=== PATIENT | female | born 2000 | race African-American/Black ===

== ENCOUNTER 2023-04-28 16:56 | Emergency (ER) | payer MEDICAID, SELFPAY ==
[2023-04-28 17:06] VITALS: BP 121/84; PULSE 105; RESP 18; TEMP 37.1; O2SAT 98; BMI 38.5
--- NOTE | 2023-04-28 17:15 | ED_ITS ---
HPI - General Adult General Chief complaint: General Medical Stated complaint: Treated for STD? Time Seen by Provider: 04/28/23 17:22 Source: patient Mode of arrival: ambulatory Limitations: no limitations History of Present Illness HPI narrative: Patient is a 22 year old assigned female at , now male, with a history of recent unprotected sex presenting to the emergency department today with vaginal discharge and pelvic pain. Patient states that on 04/24/2023 he had unprotected sex with someone who later tested positive for Gonorrhea and Chlamydia. He states he went to [facility] and tested positive for Trich on 04/26/2023 and was started on Flagyl however, his vaginal discharge continues to get worse and his pelvis is now hurting. Patient denies any dizziness, lightheadedness, abdominal pain, nausea, vomiting, fever, chills, blurry vision, double vision, loss of vision, chest pain, difficulty breathing, shortness of breath, back pain, night sweats, pain with urination, increased urinary frequency, increased urinary urgency, blood in his urine or stool, syncope or a near syncopal episode, recent trauma or falls, bowel incontinence, bladder incontinence, bowel retention, bladder retention, or any other complaints at this time. Onset (ago): day(s) Severity: mild Related Data Previous Rx's Medication Instructions Recorded doxycycline hyclate 100 mg tablet 100 mg PO BID 14 days #28 tabs 04/28/23 fluconazole 150 mg tablet 150 mg PO Q3D 2 doses #2 tabs 04/28/23 metronidazole 500 mg tablet 500 mg PO BID 14 days #28 tabs 04/28/23 Allergies Allergy/AdvReac Type Severity Reaction Status Date / Time amoxicillin [AMOXICILLIN] Allergy Unknown RASH Verified 04/28/23 17:15 Review of Systems Constitutional: Constitutional: Reports no additional constitutional complaints, Denies chills, Denies fever(s) and Denies night sweats Eyes: Eyes: Reports no additional eye complaints, Denies blurry vision, Denies change in vision, Denies diplopia, Denies eye discharge, Denies loss of vision and Denies eye pain ENT: Denies dizziness Cardiovascular: Cardiovascular: Reports no additional cardiovascular complaints, Denies chest pain, Denies lightheadedness, Denies Loss of Consciousness and Denies dyspnea Respiratory: Respiratory: Reports no additional respiratory complaints and Denies dyspnea Gastrointestinal: Gastrointestinal: Reports no additional gastrointestinal complaints, Denies abdominal pain, Denies melena, Denies hematochezia, Denies change in bowel habits and Denies change in stool character Genitourinary: Genitourinary: Denies hematuria, Denies urinary frequency, Denies dysuria, Reports pelvic pain, Denies urinary incontinence, Denies urinary hesitancy, Denies urinary urgency and Reports vaginal discharge Musculoskeletal: Musculoskeletal: Reports no additional musculoskeletal co mplaints, Denies numbness and Denies tingling Neurologic: Denies dizziness, Denies loss of vision, Denies numbness and Denies tingling Psychiatric: Psychiatric: Reports no additional psychiatric complaints Endocrine: Endocrine: Reports no additional endocrine complaints Hematologic/Lymphatic: Hematologic/Lymphatic: Reports no additional hematologic/lymphatic complaints Allergic/Immunologic: Allergic/Immunologic: Reports no additional allergic/immunologic complaints PMFSH Past Medical History Attestation statement: The following information was validated with the patient. Source: old records reviewed and nursing notes reviewed Social History Social History Advance Directives: No Advance Directives Information Provided: Yes Physical Exam ED Vital Signs: Vital Signs - 24 hr 04/28/23 17:06 Temperature 98.7 F Pulse Rate 105 H Respiratory Rate 18 Blood Pressure 121/84 Pulse Oximetry 98 Oxygen Delivery Method Room Air BMI result Body Mass Index 38.5 Const General: cooperative, no acute distress, alert and awake Nutritional Appearance: well nourished Orientation/consciousness: patient oriented x3 Limitations: no limitations HENMT Head: Yes normal to inspection and Yes atraumatic Ears: hearing grossly normal bilaterally and external ears normal General nose exam: Normal external nose present, no nasal discharge noted and no epistaxis Face and sinus: Yes normal facial exam, No abrasion and No laceration Mouth: Normal oral and palatal mucosa present, no drooling and no muffled voice Eyes General: appearance normal, both eyes and all related structures Periorbital: periorbital findings normal Eyelids: Yes eyelids normal Conjunctivae: conjunctivae normal Pupils: Equal, round and reactive pupils present EOM: EOMs intact bilaterally Neck Neck: Yes normal visual inspection, Yes full ROM and Yes no lymphadenopathy Chest Chest palpation & inspection: normal inspection of the chest Resp Effort & Inspection: normal respiratory effort and able to speak in complete sentences GI Inspection: Yes normal to inspection General: Yes deferred Neuro General: patient oriented x3 and moves all extremities Cranial nerves: Yes Equal, round and reactive pupils present Cognition (Neuro): normal cognition Motor exam (neuro): 5/5 motor strength present throughout Sensory Exam: Normal double simultaneous stimulation for sensation Coordination: [id number] test normal Extrem General: Yes normal to inspection, Yes full ROM and Yes capillary refill normal Psych Appearance: grossly normal Mental Status: mental status grossly normal Affect: normal affect Attitude: cooperative Thought process: Normal thought process present Thought content: Normal thought content present Insight: Good insight present (Psych) Course Course Course Narrative: RME: 22 yodavid harrell presents to the ED for exposure to chlamydia gonorrhea from her partner. Patient states having yellow green discharge. Patient is already on metronidazole for suspected trich. Patient had swabs already at [facility] and waiting for the results. Patient states her partner called her and informed her that he is positive for chlamydia and gonorrhea. Urine CT and Medical Decision Making Medical Decision Making MDM Narrative: Patient is a 22 year old assigned female at , now male, with a history of recent unprotected sex presenting to the emergency department today with pelvic pain and vaginal discharge. Patient's physical exam was unremarkable. Patient deferred pelvic exam. Patient's blood work was unremarkable. Patient's HIV, Hep, gonorrhea, chlamydia, and syphilis are all pending at this time. I have low suspicion for hep, HIV, and syphilis and therefore am not doing any prophylactic treatment for those. Patient's urine showed evidence of infection. I explained my physical exam findings as well as all test results to the patient. I answered all questions asked by the patient. Patient received IM ceftriaxone while in the department. Will treat for PID + vaginal yeast. I stressed the importance of the patient taking his medication as prescribed. I stressed the importance of the patient following up with his primary care provider. I stressed the importance of the patient returning to the emergency department immediately if his symptoms were to worsen or if he were to develop any dizziness, shortness of breath, difficulty breathing, chest pain, blurry vision, loss of vision, nausea, vomiting, abdominal pain, fever, chills, back pain, or any other complaints. Patient verbalized agreement and understanding with this treatment plan and discharge. Differential Diagnosis Differential Diagnoses: The differential diagnosis associated with the presentation includes PID Vaginal yeast Gonorrhea Chlamydia Trich Admission/Observation Consideration of admission/observation: Escalation of care including admission/observation considered Patient would have been admitted to the hospital had his work up had any findings where hospital admission was appropriate and his clinical presentation warranted hospital admission. Lab Data [facility] Lab Attestation statement: I reviewed the patient's lab results. My interpretation of these results are in the [facility] Rationale portion of this note. Labs: Lab Results 04/28/23 Range/Units 17:26 Urine Color Dark Yellow Urine Appearance Turbid Urine pH 8.5 (5.0-9.0) Ur Specific [place] 1.025 (1.005-1.025) Urine Protein Trace (Neg-Trace) mg/dL Urine Glucose (UA) Negative (Negative) mg/dL Urine Ketones Trace (Negative) mg/dL Urine Blood Negative (Negative) Urine Nitrite Negative (Negative) Ur Leukocyte Esterase Large (3+) H (Negative) Urine RBC 0-2 (0-2) /HPF Urine WBC >50 H (0-5) /HPF Ur Squamous Epith Cells 0-2 (0-2) /HPF Urine Bacteria None Seen (None Seen) Hyaline Casts 0-2 (0-2) /LPF Urine Test NEGATIVE (NEGATIVE) Prescription Management I considered prescription management with: Antibiotic (patient prescribed antibiotic) and Other (patient prescribed anti-fungal medication) Discharge Plan Discharge Clinical Impression: Exposure to STD Patient Disposition: Home, Self-Care Instructions: Sexually Transmitted Diseases (ED), Safe Sex Practices (ED) Additional Instructions: Your STD testing is pending at this time. We are treating you for pelvic inflammatory disease (PID) and yeast. This treatment will cover for gonorrhea, chlamydia, and trich. We will call you if your results are positive. Follow up with your primary care provider. Return to the emergency department immediately if your symptoms worsen or if you develop any dizziness, shortness of breath, difficulty breathing, chest pain, blurry vision, loss of vision, nausea, vomiting, abdominal pain, fever, chills, back pain, or any other complaints. Prescriptions: New fluconazole 150 mg tablet 150 mg PO Q3D Qty: 2 0RF metronidazole 500 mg tablet 500 mg PO BID 14 Days Qty: 28 0RF doxycycline hyclate 100 mg tablet 100 mg PO BID 14 Days Qty: 28 0RF Referrals: Kat Alston [Other] Stand Alone Forms: Work/School Release Print Language: Sami
[2023-04-28 17:34] LABS: Appearance Urine Turbid; Color Urine Dark Yellow; Glucose Urine UA Negative (Negative); Leukocyte Esterase Urine Large (3+) (Negative); Nitrite Urine Negative (Negative); PH 8.5 (5.0-9.0); Specific Gravity - Urine 1.025 (1.005-1.025); UMIC TRIGGER UACC YES; Urine Blood Negative (Negative); Urine Ketones Trace mg/dL (Negative); Urine Protein Trace mg/dL (Neg-Trace)
[2023-04-28 18:02] LABS: UPreg QC Valid YES; Urine Pregnancy NEGATIVE (NEGATIVE)
[2023-04-28 18:05] LABS: Bacteria Urine None Seen (None Seen); Hyaline Casts Urine 0-2 /LPF (0-2); RBC Urine 0-2 /HPF (0-2); Squamous Epithelial Cell Urine 0-2 /HPF (0-2); UACC Culture Trigger YES; WBC Urine >50 /HPF (0-5)
[2023-04-28 18:31] LABS: MANUAL DIFF FLAG NO
[2023-04-28] MEDS: cefTRIAXone sodium 500 MG, Lidocaine HCl 1 % MPF 1 ML IM (18:32)
[2023-04-28 18:35] LABS: Basophils Percent Auto 0.4 % (0-2); Eosinophils Absolute Auto 0.1 X10*3/uL (0.0-0.4); Eosinophils Percent Auto 1.1 % (0-4); Hematocrit 46.9 % (37.0-47.0); Hemoglobin 16.1 g/dl (12.0-16.0); Imm Gran Abs Auto 0.04 X10*3/uL (0.00-0.03); Imm Gran Pct Auto 0.5 % (0.0-0.4); Lymphocytes Absolute Auto 1.8 X10*3/uL (1.2-4.9); Lymphocytes Percent Auto 22.4 % (20-40); Mean Corpuscular HGB Conc 34.3 g/dl (31.0-35.0); Mean Corpuscular Volume 87.3 fL (80.0-98.0); Mean Platelet Volume 8.8 fL (9.4-12.3); Monocytes Absolute Auto 0.9 X10*3/uL (0.1-1.2); Monocytes Percent Auto 11.1 % (2-11); Neutrophils Absolute Auto 5.3 x10*3/uL (2.0-8.3); Neutrophils Percent Auto 64.5 % (45-73); Platelet Count 290 X10*3/uL (160-400); Red Blood Count 5.37 X10*6/uL (4.20-5.50); Red Cell Distribution Width 12.5 % (11.0-16.0); White Blood Count 8.1 X10*3/uL (4.8-10.8)
[2023-04-28 18:55] LABS: Alanine Aminotransferase 27 U/L (0-31); Albumin Level 4.4 g/dL (3.5-5.0); Alkaline Phosphatase 112 U/L (39-117); Anion Gap 15 (12-20); Aspartate Amino Transferase 23 U/L (5-31); Bilirubin Direct 0.1 mg/dL (0.0-0.5); Bilirubin Total 0.4 mg/dL (0.0-1.0); Blood Urea Nitrogen 12 mg/dL (9-16); Calcium 9.8 mg/dL (8.4-10.2); Carbon Dioxide 25 mmol/L (22-29); Chloride 104 mmol/L (96-108); Creatinine Clr Calc Pharmacy 81.4; Estimated Glomerular Filt Rate > 60; Glucose Random 83 mg/dL (60-115); Sodium 139 mmol/L (135-145); Total Protein 8.4 g/dL (6.5-8.0)
[2023-04-29 02:46] LABS: CT PCR NOT DETECTED (Not Detect.); NG PCR DETECTED (Not Detect.)
[2023-04-29 03:38] LABS: HBS Num1 3.18 mIU/mL (0-7.99); HBc Num1 0.21 S/CO (0.00-0.79); HBsAGNum1 1.18 S/CO (0.00-0.99); HIV AB/AG Nonreactive (Nonreactive); Hepatitis B Core Antibody Nonreactive (Nonreactive); ~HepC Num1 0.29 S/CO (0.00-0.79); ~Hepatitis B Surface Antibody NONREACTIVE (Nonreactive); ~Hepatitis C Antibody Nonreactive (Nonreactive)
[2023-04-29 03:40] LABS: Syphilis Screen Nonreactive (Nonreactive)
[2023-04-29 04:26] LABS: HBsAGNum2 Nonreactive; HBsAGNum3 Nonreactive; Hepatitis B Surface Antigen NEGATIVE (Negative)
== END 2023-04-28 18:50 | disposition home or self-care (01) ==
PROVIDERS: Physician Assistant; Physician Assistant Medical; Emergency Provider Emergency Medicine
DX: N89.8 Other specified noninflammatory disorders of vagina (principal); R10.2 Pelvic and perineal pain; Z20.2 Contact with and (suspected) exposure to infections with a predominantly sexual mode of transmission; Z79.899 Other long term (current) drug therapy
CPT/HCPCS: 0353U; 36415; 80048; 80076; 81001; 81025; 85025; 86704; 86706; 86780; 86803; 87086; 87340; 87389; 96372; 99282; 99284; J0696

== ENCOUNTER 2023-09-09 12:43 | Emergency (ER) | payer MEDICAID, OTHER, SELFPAY ==
[2023-09-09 12:55] VITALS: BP 141/91; PULSE 99; RESP 18; TEMP 36.3; O2SAT 98; BMI 39.3
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
[2023-09-09 13:54] LABS: MANUAL DIFF FLAG NO
[2023-09-09 13:55] LABS: Basophils Percent Auto 0.3 % (0-2); Eosinophils Percent Auto 0.3 % (0-4); Hematocrit 47.3 % (37.0-47.0); Hemoglobin 16.4 g/dl (12.0-16.0); Imm Gran Abs Auto 0.01 X10*3/uL (0.00-0.03); Imm Gran Pct Auto 0.2 % (0.0-0.4); Lymphocytes Absolute Auto 1.7 X10*3/uL (1.2-4.9); Lymphocytes Percent Auto 28.7 % (20-40); Mean Corpuscular HGB Conc 34.7 g/dl (31.0-35.0); Mean Corpuscular Volume 86.5 fL (80.0-98.0); Mean Platelet Volume 8.8 fL (9.4-12.3); Monocytes Absolute Auto 0.5 X10*3/uL (0.1-1.2); Monocytes Percent Auto 8.2 % (2-11); Neutrophils Absolute Auto 3.7 x10*3/uL (2.0-8.3); Neutrophils Percent Auto 62.3 % (45-73); Platelet Count 296 X10*3/uL (160-400); Red Blood Count 5.47 X10*6/uL (4.20-5.50); Red Cell Distribution Width 12.7 % (11.0-16.0)
[2023-09-09 14:14] LABS: Alanine Aminotransferase 22 U/L (0-31); Albumin Level 4.8 g/dL (3.5-5.0); Alkaline Phosphatase 109 U/L (39-117); Anion Gap 11 (12-20); Aspartate Amino Transferase 20 U/L (5-31); Bilirubin Direct 0.4 mg/dL (0.0-0.5); Bilirubin Total 1.4 mg/dL (0.0-1.0); Blood Urea Nitrogen 10 mg/dL (9-16); Calcium 10.1 mg/dL (8.4-10.2); Carbon Dioxide 24 mmol/L (22-29); Chloride 106 mmol/L (96-108); Creatinine Clr Calc Pharmacy 87.3; Estimated Glomerular Filt Rate > 60; Glucose Random 81 mg/dL (60-115); Potassium 4.1 mmol/L (3.3-5.1); Sodium 137 mmol/L (135-145); Total Protein 8.4 g/dL (6.5-8.0)
--- NOTE | 2023-09-09 14:45 | PC.NURSE ---
Called [facility] for support advocate, informed by severity of illness coordinator that patient must be medically cleared for advocate to be dispatched, will call back when medically cleared, ED leadership made aware.
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
[2023-09-09 16:00] VITALS: BP 146/96; PULSE 89; RESP 16; TEMP 36.7; O2SAT 97
[2023-09-09 16:05] LABS: UPreg QC Valid YES; Urine Pregnancy NEGATIVE (NEGATIVE)
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
[2023-09-09 16:24] LABS: Alanine Aminotransferase 22 U/L (0-31); Aspartate Amino Transferase 19 U/L (5-31)
--- NOTE | 2023-09-09 17:09 | PC.NURSE ---
SANE nurse at bedside
[2023-09-09] MEDS: Ondansetron ODT 4 MG TAB.RAPDIS TRANSLINGU (19:36)
[2023-09-09] MEDS: cefTRIAXone sodium 500 MG, Lidocaine HCl 1 % MPF 1 ML IM (19:36)
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
[2023-09-09] MEDS: SANE Doxycycline Monohydrate 100 MG CAPSULE PO (19:38)
[2023-09-09] MEDS: SANE Dolutegravir Sodium 50 MG TAB KIT PO (19:39)
--- NOTE | 2023-09-09 19:39 | PC.NURSE ---
Unable to scan medications given, IT called. Pharmacy called for meds not in pyxsis . Patient finished with sane exam
[2023-09-09 20:51] VITALS: BP 112/62; PULSE 104; RESP 18; TEMP 36.9; O2SAT 98
--- NOTE | 2023-09-09 21:13 | PC.NURSE ---
hep b immune globulin not given per mar as full dose not available per pharmacy. educated pt to return tomorrow to receive dose.
[2023-09-09] MEDS: [UNRECOGNIZED DRUG - OTHER] IM (21:43)
--- NOTE | 2023-09-09 21:47 | PC.NURSE ---
unable to scan uvada in may, verified with charge rn Karen before administering.
[2023-09-09 21:49] VITALS: BP 112/62; PULSE 104; RESP 18; TEMP 36.9; O2SAT 98
[2023-09-10 02:12] LABS: CT PCR NOT DETECTED (Not Detect.); NG PCR NOT DETECTED (Not Detect.)
[2023-09-10 08:25] LABS: HBS Num1 1.77 mIU/mL (0-7.99); HBsAGNum1 0.43 S/CO (0.00-0.99); HIV AB/AG Nonreactive (Nonreactive); HIV Num 1 0.06 S/CO (0.00-0.99); Hepatitis B Surface Antigen Negative (Negative); ~HepC Num1 0.34 S/CO (0.00-0.79); ~Hepatitis B Surface Antibody NONREACTIVE (Nonreactive); ~Hepatitis C Antibody Nonreactive (Nonreactive)
[2023-09-10 08:33] LABS: Syphilis Screen Nonreactive (Nonreactive)
[2023-09-10 10:37] LABS: Bacterial Vaginosis PCR NEGATIVE (Negative); Candida Group PCR NOT DETECTED (Not Detect); Candida glab krusei PCR NOT DETECTED (Not Detect); Trichomonas vaginalis PCR NOT DETECTED (Not Detect)
== END 2023-09-09 21:50 | disposition home or self-care (01) ==
PROVIDERS: Physician Assistant; Emergency Provider Emergency Medicine
DX: T76.21XA Adult sexual abuse, suspected, initial encounter (principal); Z20.2 Contact with and (suspected) exposure to infections with a predominantly sexual mode of transmission; Z20.828 Contact with and (suspected) exposure to other viral communicable diseases; Z79.899 Other long term (current) drug therapy
CPT/HCPCS: 0352U; 0353U; 36415; 80048; 80076; 81025; 84450; 84460; 85025; 86706; 86780; 86803; 87340; 87389; 90651; 90746; 96372; 99285; J0696

== ENCOUNTER 2023-10-05 18:40 | Emergency (ER) | payer MEDICAID, SELFPAY ==
[2023-10-05 19:14] VITALS: BP 111/76; PULSE 85; RESP 14; TEMP 37.3; O2SAT 98; BMI 38.6
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
--- OUTSIDE RECORDS SUMMARY | 2023-10-05 19:29 | XMS_ITS ---
Author Organization [facility] Address [address] [place] [id number] Care Team Providers Care Proof Press Operator Name Role Phone Yolande, Jesus Unavailable [phone] Allergies Allergen (clinical drug ingredient) Drug/Non Drug Allergy documented on EMR Reaction Allergy Type Onset Date Status amoxicillin Amoxicillin hives Drug Allergy Act veronica REASON FOR VISIT rx refill Medications Medication SIG (Take, Route, Fr equency, Duration) Notes Start Date End Date Status Finasteride 1 MG 1 tablet Orally Once a day for 90 days 04/09/2023 Active Social History Sex Assigned At : Social History Observation Description Sex Assigned At Female Encounters Encounter Location Date Provider Diagnosis [address] [id number] 06/13/2023 Jesus Lanier Gender identity disorder, unspecified F64.9 Assessments Encounter Date Diagnosis (ICD Code) Assessment Notes Treat ment Notes Treatment Clinical Notes 06/13/2023 Gender identity disorder, unspecified (ICD-10 - F64.9) Plan Of Treatment Medication Medication Name Sig Start Date Stop Date Notes Finasteride 1 MG 1 tablet Orally Once a day for 90 days Progress Notes * MASON DarwinlexieDOB:2000 ([age] yo F)Acc No.[id number]:06/13/2023 Patient:?Gab MASON :2000???Age:22 Y???Sex:Female Address:[address] [place] [address] [place], [address] * Refills? Refill Finasteride Tablet, 1 MG, Orally, 90 Tablet, 1 tablet, Once a day, 90 days, Refills=1 Subjective: * Chief Complaints: * ???Rx refill * Medical History:? * Surgical History:? * Hospitalization/Major Diagno stic Procedure:? * Medications:? * Allergies:?Amoxicillin: hive sno[Allergies Verified] Objective: * Vitals:? * Physical Examination:? Assessment: * Assessment: 1.?Gender identity disorder, unspecified - F64.9? Plan: * Treatment: * Procedure Codes:? * true * Date:? Generated for Sharon bertrand/Drake/eTransmitting on:?10/05/2023 07:29 PM EDT
--- OUTSIDE RECORDS SUMMARY | 2023-10-05 19:29 | XMS_ITS | Patient Health Record ---
Author Organization [facility] Address [address] [place] [phone] Care Team Providers Care Glass Driller Name Role Phone SHERIFNicole LEONARDO Unavailable [phone] SPENCER EDWARDS Unavailable [phone] EILEEN BEAVER Unavailable [phone] Ita Tabares Unavailable [phone] Jesus Lanier Unavailable [phone] Allergies Allergen (clinical drug ingredient) Drug/Non Drug Allergy documented on EMR Reaction Allergy Type Onset Date Status amoxicillin Amoxicillin hives Drug Allergy Act veronica Results Component Value Reference Range Notes APTIMA COMBO 2 CT/NG, Urine Reviewed date:07/24/2023 09:02:10 AM Interpretation:Negative Performing Lab:[facility], [facility]@ [place], [address] Asim Riddle DO Notes/Report: GONORRHEA, AMPLIFIED NEGATIVE NEGATIVE CHLAMYDIA, AMPLIFIED NEGATIVE NEGATIVE DNA Test Results SEX: F : 2000 AGE: 22 [id number] CLINIC ID: [id number] SS: PHYSICIAN: SPENCER EDWARDS PEDIGREE RESEARCHER COLLECTED BY: [id number] Specimen Source: Urine Specimen Type: Urine, [place] PCR Medium Neisseria gonorrhoeae: NEGATIVE Normal Value: Negative Chlamydia trachomatis: NEGATIVE Normal Value: Negative Hgb+Hct-[id number] Reviewed date:06/17/2023 09:50:18 AM Interpretation:16.1/48.8 Performing Lab:[facility], [address], [place], Phone - [phone], Director - Raina Notes/Report: Hemoglobin 16.1 11.1-15.9 g/dL Hematocrit 48.8 34.0-46.6 % Testosterone, Total, LC/MS-0 35594 Reviewed date:06/25/2023 10:25:51 AM Interpretation:559, normal Performing Lab:[facility], [address] [place] [address], Phone - [phone], Director - Yulisa Notes/Report: Testosterone, Total, LC/MS 559 This test was developed and its performance characteristics determined by [facility]. It has not been cleared or approved by the Food and Drug Administration. Reference Range: Adult Females Premenopausal 10 - 55 Postmenopausal 7 - [address]/NG, Vagina l Reviewed date:05/20/2023 03:50:44 PM Interpretation:Negative Performing Lab:[facility], [facility]@ [place], [address] Asim Riddle DO Notes/Report: GONORRHEA, AMPLIFIED NEGATIVE NEGATIVE CHLAMYDIA, AMPLIFIED NEGATIVE NEGATIVE DNA Test Results SEX: F : 2000 AGE: 22 [id number] CLINIC ID: [id number] SS: PHYSICIAN: LEONARDO ULLOA PEDIGREE RESEARCHER COLLECTED BY: [id number] Specimen Source: Vaginal Specimen Type: Swab, [place] PCR Medium Neisseria gonorrhoeae: NEGATIVE Normal Value: Negative Chlamydia trachomatis: NEGATIVE Normal Value: Negative VAGINOSIS VAGINITIS PLUS Reviewed date:05/01/2023 04:33:25 PM Interpretation:GC Performing Lab:Testing performed or reported by [facility], a Service of [facility], [facility] [place], [place] [address] Salas Gamez MD, Order Expediter [facility]# [id number] Notes/Report: BACTERIAL VAGINOSIS NEGATIVE (NEG) No bacterial vaginosis targets by PCR detected in this patient's sample. Note: This assay uses real time extension agent-mediated amplification (TMA) for detection and quantification of ribosomal RNA from bacteria associated with bacterial vaginosis (BV), including Lactobacillus (L. gasseri, L. crispatus, and L. jensenii), Gardnerella vaginalis, and Atopobium vaginae. THANH SPECIES GROUP NEGATIVE (NEG) No thanh species group (C. albicans, C. tropicalis, C. parapsilosis, C. dubliniensis) targets by PCR detected in this patient's sample. THANH GLABRATA NEGATIVE (NEG) No Thanh glabrata targets by PCR detected in this patient's sample. TRICHOMONAS VAGINALIS NEGATIVE (NEG) No Trichomonas vaginalis targets by PCR detected in this patient's sample. Note: This assay uses real time extension agent-mediated amplification (TMA) for detection and quantification of ribosomal RNA from organisms associated with Thanh species group (C. albicans, C. tropicalis, C. parapsilosis, C. dubliniensis), Thanh glabrata, and Trichomonas vaginalis. C.TRACHOMATIS AMP PROBE NEGATIVE (NEG) No Chlamydia Trachomatis RNA detected in this patient's sample (REFERENCE RANGE/NORMAL VALUE: NOT DETECTED) Note: This test uses extension agent- mediated amplification method to detect rRNA from C. Trachomatis N.GONORRHOEAE AMP PROBE POSITIVE (NEG) Neisseria Gonorrhoeae RNA detected in this patient's sample (REFERENCE RANGE/NORMAL VALUE: NOT DETECTED) Result reported to the [facility]. NOTE: This test uses extension agent-mediated amplification method to detect rRNA from N.Gonorrhoeae. A negative result does not preclude infection. In the case of a negative urine result, testing of an endocervical(female) or urethral (male) specimen is recommended if there is high clinical suspicion of infection. Due to very high sensitivity of Nucleic Acid Amplification Test, false positive results may occur. Therefore, specimen handling is extremely important. In patients in whom the disease is unlikely, additional sample for testing should be considered after an initial positive result. The performance characteristics of this test have not been evaluated in children. The Aptima Combo2 assay is not intended for the evaluation of suspected sexual abuse or for other medico-legal indications. The ordering provider should assess if the patient had consensual sex without risk of sexual abuse. Consult the [facility] if needed. Contact phone number . Therapeutic failure or success cannot be determined with the Aptima Combo2 assay since nucleic acid may persist following appropriate antimicrobial therapy. The Centers for Disease Control and Prevention (CDC) recommends confirmatory retesting using culture or a different nucleic acid amplification test when positive results occur, if indicated. Wet Mount Reviewed date:04/26/2023 10:05:15 AM Interpretation:Probable Trich Performing Lab: Notes/Report: Probable Trich Clue Cells neg WBC TNTC Hyphae neg Trichomonas possible pH 7.0 QUE Prep neg whiff Reason For Referral No Information Medications Medication SIG (Take, Route, Frequency, Duration) Notes Start Date End Date Status CVS Alcohol Prep Pads 70 % as directed for 90 days 08/17/2022 Acti ve BD Disp [place] 21G X 1-1/2 as directed for drawing up medication once weekly for 90 days 08/24/2021 Active Testosterone Cypionate 200 MG/ML 0.3 ml/60mg Subcutaneous once weekly for 90 days 04/09/2023 Active Benzoyl Peroxide Wash 5 % 1 application Externally Once a day Active Vistaril Not-Taking BD Luer-Adela Syringe 25G X 5/8 1 ML as directed, for medication administration SQ once weekly for 90 days 08/24/2021 Active Finasteride 1 MG 1 tablet Orally Once a day for 90 days 04/09/2023 Active SEROquel Active Loratadine Not-Takin g lamoTRIgine 150 MG 1 tablet Orally Once a day for 30 day(s) Active Levalbuterol HCl Not -Taking Paragard Intrauterine Copper - as directed Intrauterine Act veronica BD Luer-Adela Syringe 25G X 5/8 3 ML as directed subcutaneous weekly for 90 days 04/09/2023 Active cloNIDine Active Naproxen 375 MG 1 tablet with food o r milk as needed Orally every 12 hrs Not-Taking BD [employer] - as directed for 90 days 08/17/2022 Acti ve BD Disp [place] 19G X 1 use to draw up medication Subcutaneously weekly for 90 days 04/09/2023 Active Social History Sex Assigned At : Social History Observation Description Sex Assigned At Female Problems Problem Type SNOMED Code ICD Code Onset Dates Problem Status W/U Status Risk Notes Problem 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 Problem Gender identity disorder (07068720) Gender identity disorder, unspecified (F64.9) Active confirmed Vital Signs Blood pressure diastolic 70 mm Hg 07/17/2023 Height 59 in 07/17/2023 Blood pressure systolic 120 mm Hg 07/17/2023 Weight 195 lbs 07/17/2023 BMI 39.38 kg/m2 07/17/2023 Encounters Encounter Location Date Provider Diagnosis [facility] [address] [place], [place] [id number] 04/09/2023 LEONARDO GABAI Gender identity disorder, unspecified F64.9 ; Hormone replacement therapy Z79.890 and Counseling, unspecified Z71.9 [facility] [address] [place], [place] [id number] 04/26/2023 Ita Tabares Encounter for screening for infections with a predominantly sexual mode of transmission Z11.3 ; Counseling, unspecified Z71.9 ; Vaginal discharge N89.8 and Trichomonal vulvovaginitis A59.01 [facility] [address] [place], [place] [id number] 05/15/2023 LEONARDO GABAI Encounter for screening for infections with a predominantly sexual mode of transmission Z11.3 and Counseling, unspecified Z71.9 [facility] [address] [place], [place] [id number] 06/13/2023 LEONARDO GABAI Hormone replacement therapy Z79.890 and Other gender identity disorders F64.8 [facility] [address] [place], [place] [id number] 06/25/2023 LEONARDO GABAI Gender identity disorder, unspecified F64.9 and Other fdc (current) drug therapy Z79.[address] [facility] [address] [place] [id number] 07/17/2023 SPENCER EDWARDS Encounter for screening for infections with a predominantly sexual mode of transmission Z11.3 and Counseling, unspecified Z71.[address] [id number] 12/11/2022 LEONARDO GABAI [facility] [address] [place], [place] [id number] 04/10/2023 LEONARDO GABAI [facility] [address] [place] [id number] 04/30/2023 EILEEN BEAVER [facility] [address] [facility] [place], [place] [id number] 06/13/2023 Jesus Lanier Gender identity disorder, unspecified F64.9 Assessments Encounter Date Diagnosis (ICD Code) Assessment Notes Treat ment Notes Treatment Clinical Notes 04/09/2023 Gender identity disorder, unspecified (ICD-10 - F64.9) Clt could follow up for repeat labs and check in every 6-12 months, as they desire. Will RTC for labs 05/2023, due for total testosterone, Hct/Hgb only. Will check in regarding response to finasteride at that time. 6 month of rx sent at this time, will send refills for additional meds 09/2023 as long as no changes needed. 04/09/2023 Hormone replacement therapy (ICD-10 - Z79.890) Clt happy with current regimen, has been on this maintenance dose for some time and does not wish to change. Has been interested in starting Finasteride to reduce androgenic hair loss in the past, but we previously advised clt to wait until they have been on Testosterone for approx 1-2 years before starting finasteride since it could slow other DHT dependent changes like secondary hair growth and clitoral growth. Now that clt has been on hormones for 1 year and 7 months, they would like to start. Reassured clt that some changes in hairline is expected early on, but doesn't necessarily mean more hair loss will occur in the future. Aware of risk and benefits and will trial for a few months to see if improvement. 04/26/2023 Encounter for screening for infections with a predominantly sexual mode of transmission (ICD-10 - Z11.3) 05/15/2023 Encounter for screening for infections with a predominantly sexual mode of transmission (ICD-10 - Z11.3) Reviewed STI screening recommendations and available testing through [email or web address]. Testing ordered as noted per patient risks and preference. Encouraged safe sex practices. Advised to call for evaluation if any symptoms arise. Reviewed method of communicating results to patient. 06/13/2023 Hormone replacement therapy (ICD-10 - Z79.890) 06/13/2023 Gender identity disorder, unspecified (ICD-10 - F64.9) 06/25/2023 Gender identity disorder, unspecified (ICD-10 - F64.9) Clt prefers to follow up every 6 months. Can schedule [facility] follow 11/202306/25/2023 Other fdc (current) drug therapy (ICD-10 - Z79.899) No CI to continue with Finasteride. Rx sent with refills, until due for next routine [facility] appt. Clt aware of risk, benefits and side effects of medication. Will follow up as needed 07/17/2023 Encounter for screening for infections with a predominantly sexual mode of transmission (ICD-10 - Z11.3) Discussed STI's, risk factors, symptoms and infection windows. Encouraged condom use. 07/17/2023 Counseling, unspecified (ICD-10 - Z71.9) 05/15/2023 Counseling, unspecified (ICD-10 - Z71.9) Re test in 3 months 06/13/2023 Other gender identity disorders (ICD-10 - F64.8) 04/26/2023 Counseling, unspecified (ICD-10 - Z71.9) 04/09/2023 Counseling, unspecified (ICD-10 - Z71.9) Denies STI screening at this time. Up to date with PAP, no annual screening needed at this time. 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 04/26/2023 Vaginal discharge (ICD-10 - N89.8) 04/26/2023 Trichomonal vulvovaginitis (ICD-10 - A59.01) 04/26/2023 Other Discussed exam and wet mount results. Wet mount with possible non-motile trichomonads, other signs on wet mount and exam highly suspicious for trichomoniasis. Will treat with metronidazole. Dispensed in clinic, Lot [id number], exp 09/15/23. Reviewed use. Discussed PID precautions and when/how to seek care over the weekend. Reviewed method of communicating results 06/25/2023 Other Needs GC retest 07/2023 Plan Of Treatment No Information Insurance Providers Payer Name Payer Address Payer Phone Subscriber Number Group Number Insured Name Patient Relationship to Insured Coverage Start Date Coverage End Date OR MEDICAID ATT CLAIMS [address] [place] [id number] [phone] [id number] Gab Alvarez Self - patient is the insured Medical (General) History Medical History History ICD Code Asthma Chronic PTSD Bipolar on meds and feels stable as of 6 .2.22 Abnormal pap GC 04/2023 Surgical History Surgery Date(Month/Year) top surgery 02/2023 Hospitalization History Reason Date(Month/Year) see above psych oneal
--- OUTSIDE RECORDS SUMMARY | 2023-10-05 19:29 | XMS_ITS ---
Author Organization [facility] Address [address] [place] [phone] Care Team Providers Care Line Assembler Aircraft Name Role Phone SPENCER EDWARDS Unavailable [phone] Allergies Allergen (clinical drug ingredient) Drug/Non Drug Allergy documented on EMR Reaction Allergy Type Onset Date Status amoxicillin Amoxicillin hives Drug Allergy Act veronica Results Component Value Reference Range Notes APTIMA COMBO 2 CT/NG, Urine Reviewed date:07/24/2023 09:02:10 AM Interpretation:Negative Performing Lab:[facility], [facility] WORKING OUT WORKS [facility], [place], [address] Asim Riddle DO Notes/Report: GONORRHEA, AMPLIFIED NEGATIVE NEGATIVE CHLAMYDIA, AMPLIFIED NEGATIVE NEGATIVE DNA Test Results SEX: F : 2000 AGE: 22 [id number] CLINIC ID: [id number] SS: PHYSICIAN: SPENCER EDWARDS CONFERENCE TRANSLATOR COLLECTED BY: [id number] Specimen Source: Urine Specimen Type: Urine, Scott PCR Medium Neisseria gonorrhoeae: NEGATIVE Normal Value: Negative Chlamydia trachomatis: NEGATIVE Normal Value: Negative REASON FOR VISIT Counseling/Testing Medications Medication SIG (Take, Route, Frequency, Duration) Notes Start Date End Date Status Vistaril Not-Taking Finasteride 1 MG 1 tablet Orally Once a day for 90 days 04/09/2023 Active SEROquel Active Paragard Intrauterine Copper - as directed Intrauterine Act veronica cloNIDine Active Loratadine Not-Takin g Levalbuterol HCl Not -Taking BD Luer-Adela Syringe 25G X 5/8 3 ML as directed subcutaneous weekly for 90 days 04/09/2023 Active Naproxen 375 MG 1 tablet with food o r milk as needed Orally every 12 hrs Not-Taking BD Disp [place] 19G X 1 use to draw up medication Subcutaneously weekly for 90 days 04/09/2023 Active [facility] Alcohol Prep Pads 70 % as directed for 90 days 08/17/2022 Acti ve BD Disp [place] 21G X 1-1/2 as directed for drawing up medication once weekly for 90 days 08/24/2021 Active Testosterone Cypionate 200 MG/ML 0.3 ml/60mg Subcutaneous once weekly for 90 days 04/09/2023 Active BD Luer-Adela Syringe 25G X 5/8 1 ML as directed, for medication administration SQ once weekly for 90 days 08/24/2021 Active BD [employer] Home - as directed for 90 days 08/17/2022 Acti ve Benzoyl Peroxide Wash 5 % 1 application Externally Once a day Active lamoTRIgine 150 MG 1 tablet Orally Once a day for 30 day(s) Active Social History Sex Assigned At : Social History Observation Description Sex Assigned At Female Vital Signs Blood pressure systolic 120 mm Hg 07/17/19 24 Blood pressure diastolic 70 mm Hg 024 Height 59 in 07/17/2023 Weight 195 lbs 07/17/2023 BMI 39.38 kg/m2 07/17/2023 Encounters Encounter Location Date Provider Diagnosis [address] [phone] 07/17/2023 SPENCER EDWARDS Encounter for screen ing for infections with a predominantly sexual mode of transmission Z11.3 and Counseling, unspecified Z71.9 Assessments Encounter Date Diagnosis (ICD Code) Assessment Notes Treat ment Notes Treatment Clinical Notes 07/17/2023 Encounter for screening for infections with a predominantly sexual mode of transmission (ICD-10 - Z11.3) Discussed STI's, risk factors, symptoms and infection windows. Encouraged condom use. 07/17/2023 Counseling, unspecified (ICD-10 - Z71.9) Plan Of Treatment Treatment Notes Assessment Notes Encounter for screening for infections with a predominantly sexual mode of transmission Discussed STI's, risk factors, symptoms and infection windows. Encouraged condom use. Next Appt Details Follow Up: prn, Reason: Progress Notes * Gab MASONDOB:2000 ([age] yo F)Acc No.[id number]:07/17/2023 Progress Notes Patient:Gab MG Provider:?Spencer Edwards NP :2000???Age:22 Y???Sex:Female(T ) Date:07/17/2023 Address:[address] [place], [place] [id number] Subjective: * Chief Complaints: * ???Counseling/Testing * HPI: ???Visit Narrative:? Client would only like urine GC and chlamydia testing today.? No STI symptoms. ?Reason for the visit:?Routine visit - client is going on vacation soon and would like to be sexually active while there..?Current form of control:?IUD - Paragard per client.?Presenting Symptoms:?No sx or concerns per client.?LMP:?07/16/2022 per chart , client does not get periods.?Last date of UPI:?04/18/2023 per client.?Aptima/ declines bw. * Medical History:? 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 control:?Paragard intrauterine device, Depo.?Last menstrual period:?07/16/22.?Last pap smear date:?Apr or May 2021.?Menarche:?Age of menarche?7.?Periods:?Does not get periods.?Sexual activity:?Currently sexually active, with men.?Sexually Transmitted Diseases (STDs):?Gonorrhea.?Unprotected sex in the last 5 days?:?no.?Unprotected sex in the past 10 days?:?no.? * OB History:?Total pregnancie s:?0.?Total living children:?0.? * Surgical History:?top surger y 02/2023 * Hospitalization/Major Diagno stic Procedure:?psych oenal see above * Family History:?Family Histo ry: hypercholesterolemia, diabetes mellitus, hypertension.?Non-Contributory.? None Known. * Social History:?Food Access:?Food Access?The Client's current access to food is?Secure Food Access.?Housing:?Housing?The client's current living situation is:?stable housing.?Reproductive Life Plan:?Reproductive Life Plan?Do you want to have children??Yes, I want to have children,?How long would you like to wait until you/your partner becomes ??not sure,?How sure are you that you will be able to use your control method without any problems??Very sure.?Sexual History:?Sexual History?Sexual History Reviewed:?Partners, Practices, Protection/Past STIs,?Currently sexually active??Yes,?Sexually active with:?Men,?Number of male partners?1,?Your sexual activities include:?oral intercourse, vaginal intercourse,?Date of last unprotected intercourse:?04/18/2023,?Number of partners in past 3 months: 1 Male partner,?Number of partners in past year:?1,?Does your partner(s) currently have any STIs??No.?HIV Risk Assessment:?Additional Questions?Is an HIV Risk Assessment being conducted??No Client declines.?PrEP for HIV:?PrEP for HIV?Is the client interested in beginning/continuing PrEP for HIV??No.?Relationships:?Relationships?Has the client experienced any of the following:?Harmful Relationships,?Emotionally?Yes,?Currently:?No.?Human Trafficking:?Human Trafficking?Experienced:?No.?Tobacco Use:?Tobacco Use?Do you/have you used tobacco??No,?Tobacco Smoking Status?Never smoker .?Drugs/Alcohol:?Drug/Alcohol Use?Do you or have you used drugs??No Per client,?Do you or have you used alcohol??No Per client.?Counseling Provided:?Counseling Provided?Please indicate the length of time, in minutes, that counseling was provided.?7,?Counseling Was Provided By:?lydper.?Aptima/ declines bw. * Medications:?TakingParagard Intrauterine Copper - Intrauterine Device as directed Intrauterine cloNIDine SEROquel lamoTRIgine 150 MG Tablet 1 tablet Orally Once a day Benzoyl Peroxide Wash 5 % Liquid 1 application Externally Once a day BD Luer-Adela Syringe 25G X 5/8 1 ML Miscellaneous as directed, for medication administration SQ once weekly BD Disp [place] 21G X 1-1/2 Miscellaneous as directed for drawing up medication once weekly Testosterone Cypionate 200 MG/ML Solution 0.3 ml/60mg Subcutaneous once weekly CVS Alcohol Prep Pads 70 % Pad as directed BD [employer] - Miscellaneous as directed BD Disp [place] 19G X 1 Miscellaneous use to draw up medication Subcutaneously weekly BD Luer-Adela Syringe 25G X 5/8 3 ML Miscellaneous as directed subcutaneous weekly Finasteride 1 MG Tablet 1 tablet Orally Once a day Taking Paragard Intrauterine Copper - Intrauterine Device as directed Intrauterine Taking cloNIDine Taking SEROquel Taking lamoTRIgine 150 MG Tablet 1 tablet Orally Once a day Taking Benzoyl Peroxide Wash 5 % Liquid 1 application Externally Once a day Taking BD Luer-Adela Syringe 25G X 5/8 1 ML Miscellaneous as directed, for medication administration SQ once weekly Taking BD Disp [place] 21G X 1-1/2 Miscellaneous as directed for drawing up medication once weekly Taking Testosterone Cypionate 200 MG/ML Solution 0.3 ml/60mg Subcutaneous once weekly Taking CVS Alcohol Prep Pads 70 % Pad as directed Taking BD [employer] - Miscellaneous as directed Taking BD Disp [place] 19G X 1 Miscellaneous use to draw up medication Subcutaneously weekly Taking BD Luer-Adela Syringe 25G X 5/8 3 ML Miscellaneous as directed subcutaneous weekly Taking Finasteride 1 MG Tablet 1 tablet Orally Once a day Not-Taking/PRNNaproxen 375 MG Tablet 1 tablet with food or milk as needed Orally every 12 hrs Loratadine Levalbuterol HCl Vistaril Not-Taking/PRN Naproxen 375 MG Tablet 1 tablet with food or milk as needed Orally every 12 hrs Not-Taking/PRN Loratadine Not-Taking/PRN Levalbuterol HCl Not-Taking/PRN Vistaril * Allergies:?Amoxicillin: hive sno[Allergies Verified] Objective: * Vitals:?BP:120/70mm Hg, Ht: 59 in, Wt:195lbs, BMI:39.38Index, Ht-cm: 149.86, Wt- k.45. * Examination: ???General Examination: ?GENERAL APPEARANCE:?normal, well developed, well nourished.?PSYCH:?alert, oriented.? Assessment: * Assessment: 1.?Encounter for screening f or infections with a predominantly sexual mode of transmission - Z11.3 (Primary)?2.?Counseling, unspecified - Z71.9? Spent 15 minutes doing the f ollowing: Chart Prep Obtaining/reviewing history Counseling/Coordination of Care Documenting the visit Educating the patient Ordering medication/test/procedures. Plan: * Treatment: ? Value Reference Range ?GONORRHEA, Amplified NEGATIVE NE GATIVE - * ?CHLAMYDIA, Amplified NEGATIVE NE GATIVE - * SPENCER EDWARDS V 07/24/2023 09: 02:08 AM EDT >This lab was reviewed by SPENCER EDWARDS on 07/24/2023 at 09:02 AM EDT Notes: Discussed STI's, risk factors, symptoms and infection windows. Encouraged condom use. ? * Procedure Codes:? * Follow Up:?prn * Billing Information: * Visit Code:? 32763 Existing - Minimal Complexity (IN USE). * Procedure Codes:? * Sign off status: Completed true * Provider:?Spencer Edwards NP Date:? 024 Generated for Printi ng/Faxing/eTransmitting on:?10/05/2023 07:29 PM EDT History and Physical Notes * HPI (History of Present Illness) Category Sub-Category Detail Notes Visit Narrative Reason for the visit: Routine vi sit - client is going on vacation soon and would like to be sexually active while there. Current form of control: IUD - Par geovanny per client Presenting Symptoms: No sx or concerns p er client LMP: 07/16/2022 per chart , client does not get periods Last date of UPI: 04/18/2023 per client Examination Category Sub-Category Detail Notes General Examination GENERAL APPEARANCE: normal, well developed, well nourished PSYCH: alert, oriented
--- OUTSIDE RECORDS SUMMARY | 2023-10-05 19:29 | XMS_ITS ---
Author Organization [facility] Address [address] [place] [phone] Care Team Providers Care Marketing Administrator Name Role Phone HINA IYER Unavailable [phone] Allergies Allergen (clinical drug ingredient) Drug/Non Drug Allergy documented on EMR Reaction Allergy Type Onset Date Status amoxicillin Amoxicillin hives Drug Allergy Act veronica REASON FOR VISIT Finasteride check in Medications Medication SIG (Take, Route, Frequency, Duration) Notes Start Date End Date Status Benzoyl Peroxide Wash 5 % 1 application Externally Once a day Active lamoTRIgine 150 MG 1 tablet Orally Once a day for 30 day(s) Active BD Disp [place] 21G X 1-1/2 as directed for drawing up medication once weekly for 90 days 08/24/2021 Active BD Luer-Adela Syringe 25G X 5/8 1 ML as directed, for medication administration SQ once weekly for 90 days 08/24/2021 Active Testosterone Cypionate 200 MG/ML 0.3 ml/60mg Subcutaneous once weekly for 90 days 04/09/2023 Active SEROquel Active cloNIDine Active Finasteride 1 MG 1 tablet Orally Once a day for 90 days 04/09/2023 Active Vistaril Not-Taking Paragard Intrauterine Copper - as directed Intrauterine Act veronica Naproxen 375 MG 1 tablet with food o r milk as needed Orally every 12 hrs Not-Taking Levalbuterol HCl Not -Taking Loratadine Not-Takin g BD Luer-Adela Syringe 25G X 5/8 3 ML as directed subcutaneous weekly for 90 days 04/09/2023 Active BD Disp [place] 19G X 1 use to draw up medication Subcutaneously weekly for 90 days 04/09/2023 Active CVS Alcohol Prep Pads 70 % as directed for 90 days 08/17/2022 Acti ve BD [employer] - as directed for 90 days 08/17/2022 Acti ve Social History Sex Assigned At : Social History Observation Description Sex Assigned At Female Vital Signs Blood pressure systolic 128 mm Hg 06/25/19 Blood pressure diastolic 82 mm Hg 024 Height 59 in 06/25/2023 Weight 195 lbs 06/25/2023 BMI 39.38 kg/m2 06/25/2023 Encounters Encounter Location Date Provider Diagnosis [facility] [address] [place] [address] [address] [place], [place] [phone] 06/25/2023 HINA GABAI Gender identity disorder, unspecified F64.9 and Other oil heaterman (current) drug therapy Z79.899 Assessments Encounter Date Diagnosis (ICD Code) Assessment Notes Treatment Notes Treatment Clinical Notes 06/25/2023 Gender identity disorder, unspecified (ICD-10 - F64.9) Clt prefers to follow up every 6 months. Can schedule [facility] follow 11/202306/25/2023 Other jail (current) drug therapy (ICD-10 - Z79.899) No CI to continue with Finasteride. Rx sent with refills, until due for next routine [facility] appt. Clt aware of risk, benefits and side effects of medication. Will follow up as needed 06/25/2023 Other Needs GC retest 07/2023 Plan Of Treatment Medication Medication Name Sig Start Date Stop Date Notes Finasteride 1 MG 1 tablet Orally Once a day for 90 days Treatment Notes Assessment Notes Gender identity disorder, unspecified Cl t prefers to follow up every 6 months. Can schedule [facility] follow 11/2023 Other jail (current) drug therapy N o CI to continue with Finasteride. Rx sent with refills, until due for next routine [facility] appt. Clt aware of risk, benefits and side effects of medication. Will follow up as needed Other Needs GC retest 08/05 23 Next Appt Details Follow Up: 07/2023, re evita t, Reason: Progress Notes * Nishant MASON:2000 ([age] yo F)Acc No.[id number]:06/25/2023 Gender affirming hormones fo llow up visit Patient:?Gab MASON Provider:?Hina Iyer NP :2000???Age:22 Y???Sex:Female(T ) Date:06/25/2023 [facility] [id number] Subjective: * Chief Complaints: * ???Finasteride check in * HPI: ???Visit Narrative:?Clt was seen 03/2023 for routine [facility] appt. Started on Finasteride at that time, here for check in. Recent labs for testosterone and Hgb/Hct performed, all WNL at current dosing. Has noticed less hair loss since starting Finasteride, and would like to continue.Denies side effects or issue with new regimen. Not currently sexually active, treated for GC 04/2023, DIMAS was negative. Denies symptoms of infection or concern of STI exposure. ?Reason for the visit:?[facility] fu.?Current form of control:?iud.?Presenting Symptoms:?none?.?LMP:?amen?.?Last date of UPI:?not active?.? * ROS:?ACHES:?shortness of breath?Denies.?chest pain?Denies.?visual changes?Denies.?calf pain?Denies.?abdominal pain?Denies.?jaundice?Denies.?General/Constitutional:?Denies?Headache.?Ophthalmologic:?Denies?Visual changes.?Endocrine:?Hair Growth?denies.?Denies?Acne.?Denies?Hair loss.?Vaginal/Breast/ Control FU:?Denies?Changes in sex drive.?Denies?Breast lump.?Denies?Breast pain.?Denies?Discharge from the breast.?Denies?Irregular menses.?Denies?Missed period(s).?Denies?Painful intercourse.?Psychiatric:?Denies?Mood concerns.? * Medical History:? * Stable Manager History:?Abnormal pap smear:?Low Grade Squamous Intraepitheliel Lesion (LGSIL).? control:?Paragard intrauterine device, Depo.?Last menstrual period:?07/16.?Last pap smear date:?Apr or May 2021.?Menarche: ?Age of menarche?7 ???Sexual activity:?not currently sexually active, with men.?Sexually Transmitted Diseases (STDs):?Gonorrhea.?Unprotected sex in the last 5 days?:?no.?Unprotected sex in the past 10 days?:?no.? * OB History:?Total pregnancies:?0.? * Surgical History:?top surger y 02/2023 * Hospitalization/Major Diagno stic Procedure:?psych oneal see above * Family History:?Family Histo ry: hypercholesterolemia, diabetes mellitus, hypertension.?Non-Contributory.? * Social History:?Food Access:?Food Access?The Client's current access to food is?Secure Food Access ???Gender Affirming Hormone Care:?Gender Affirming Hormone Care?How do you describe your gender identity? Select all that apply?Nonbinary ?How would you prefer to talk about or refer to your body??(Describe in notes.) top and bottom ?What experience do you have with gender affirming care, if any??Social transition ?What are your goals with seeking gender affirming care??Gender affirming surgery (describe in notes) wants top surgery, wants to be a pretty boy ?While hormonal treatment is not contraception, it can have an impact on fertility. Is this something you would like to plan for??Yes currently on Paragard, interested in possibly freezing eggs and considering a tubal ligation in the future ???Housing:?Housing?The client's current living situation is:?stable housing ???Reproductive Life Plan:?Reproductive Life Plan?Do you want to have children??Not sure ???Sexual History:?Sexual History?Sexual History Reviewed:?Partners, Practices, Protection/Past STIs, Prevention of ?Currently sexually active??No ?When you are sexually active, who are your partners??Men, Women ?Your sexual activities include:?oral intercourse, vaginal intercourse ?Reviewed types of EC??No ?Do you use condoms??No ?Number of partners in past 3 months:?0 ?Number of partners in past year:?1 male ?What is the client's primary method to prevent at the end of their visit??IUD - Liletta ???HIV Risk Assessment:?Additional Questions?Is an HIV Risk Assessment being conducted??No ???PrEP for HIV:?PrEP for HIV?Is the client interested in beginning/continuing PrEP for HIV??No ???Relationships:?Relationships?Has the client experienced any of the following:?Reproductive Coercion, Harmful Relationships, Sexual Coercion ?Emotionally?Yes ?Currently:?No ?Physically:?Yes ?Currently:?No ?Sexually:?Yes ?Currently?No ?Been forced or pressured into sexual activities??Yes ?Currently:?No ???Human Trafficking:?Human Trafficking?Experienced:?No ???Tobacco Use:?Tobacco Use?Do you/have you used tobacco??No ?Tobacco Smoking Status?Former smoker ???Drugs/Alcohol:?Drug/Alcohol Use?Do you or have you used drugs??Yes, in the past ?When you used, by which route did you take drugs??Smoking ?Which drug(s) did you smoke??Marijuana ?Do you or have you used alcohol??No ???Counseling Provided:?Counseling Provided?Please indicate the length of time, in minutes, that counseling was provided.?7 ?Counseling Was Provided By:?fanta * Medications:?TakingParagard Intrauterine Copper - Intrauterine Device as directed Intrauterine cloNIDine SEROquel lamoTRIgine 150 MG Tablet 1 tablet Orally Once a day Benzoyl Peroxide Wash 5 % Liquid 1 application Externally Once a day BD Luer-Adela Syringe 25G X 5/8 1 ML Miscellaneous as directed, for medication administration SQ once weekly BD Disp [place] 21G X 1-1/2 Miscellaneous as directed for drawing up medication once weekly Testosterone Cypionate 200 MG/ML Solution 0.3 ml/60mg Subcutaneous once weekly CVS Alcohol Prep Pads 70 % Pad as directed BD [employer] - Miscellaneous as directed BD Disp [place] 19G X 1 Miscellaneous use to draw [...] administration SQ once weekly Taking BD Disp [place] 21G X 1-1/2 Miscellaneous as directed for drawing up medication once weekly Taking Testosterone Cypionate 200 MG/ML Solution 0.3 ml/60mg Subcutaneous once weekly Taking CVS Alcohol Prep Pads 70 % Pad as directed Taking BD [employer] - Miscellaneous as directed Taking BD Disp [place] 19G X 1 Miscellaneous use to draw up medication Subcutaneously weekly Taking BD Luer-Adela Syringe 25G X 5/8 3 ML Miscellaneous as directed subcutaneous weekly Taking Finasteride 1 MG Tablet 1 tablet Orally Once a day Not-Taking/PRNNaproxen 375 MG Tablet 1 tablet with food or milk as needed Orally every 12 hrs Loratadine Levalbuterol HCl Vistaril Medication List reviewed and reconciled with the patientNot-Taking/PRN Naproxen 375 MG Tablet 1 tablet with food or milk as needed Orally every 12 hrs Not-Taking/PRN Loratadine Not-Taking/PRN Levalbuterol HCl Not-Taking/PRN Vistaril Medication List reviewed and reconciled with the patient * Allergies:?Amoxicillin: hive sno[Allergies Verified] Objective: * Vitals:?BP:128/82mm Hg, Ht: 59 in, Wt:195lbs, BMI:39.38Index, Ht-cm: 149.86, Wt- k.45. * Examination: ???General Examination: ?GENERAL APPEARANCE:?in no acute distress.? Assessment: * Assessment: 1.?Gender identity disorder, unspecified - F64.9 (Primary)?2.?Other oil heaterman (current) drug therapy - Z79.899? Need 2 out of 3 Sections fro m A-C Section A) Problems (only need one from below) One stable chronic illness Section B) Data (at least one of the following categories in this section) Category 1: (Choose 2 of the following): Order unique tests Review test results (each unique test counts as one) Category 2: Assessment requiring an independent historian Section C) Risk Document low risk of morbidity/mortality. Plan: * Treatment: 2.?Other oil heaterman (current) drug therapy? Continue Finasteride Tablet, 1 MG, 1 tablet, Orally, Once a day, 90 days, 90 Tablet, Refills 1.?? Notes: No CI to continue with Finasteride. Rx sent with refills, until due for next routine [facility] appt. Clt aware of risk, benefits and side effects of medication. Will follow up as needed?? 3.?Others? Notes: Needs GC retest 07/2023?? * Procedure Codes:? * Follow Up:?07/2023, GC re evita t * Billing Information: * Visit Code:? 31073 Existing - Low Complexity (IN USE). * Procedure Codes:? * Sign off status: Completed true * Provider:?Hina Iyer NP Date:? 024 Generated for Sharon bertrand/Drake/Shayyitting on:?10/05/2023 07:29 PM EDT History and Physical Notes * HPI (History of Present Illness) Category Sub-Category Detail Notes Visit Narrative Reason for the visit: [facility] fu Current form of control: iud Presenting Symptoms: none LMP: amen Last date of UPI: not active Examination Category Sub-Category Detail Notes General Examination GENERAL APPEARANCE: in no ac autumn distress
--- OUTSIDE RECORDS SUMMARY | 2023-10-05 19:29 | XMS_ITS | Continuity of Care Document ---
Author Organization [facility] ter Address [address] [place] [id number]- Care Team Providers Care Sales Support Specialist Name Role Phone Not on Staff, PCP Primary Care Physician Unavail able Encounter [facility] Date(s): 08/09/21 - 08/10/[address] [address]- Encounter Diagnosis Shortness of breath(Final) - 08/09/21 Tachycardia(Final) - 08/09/21 Discharge Disposition: A-D/C Group Home, [facility], or [facility] Attending Physician: Jimenez Olivares MD Admitting Physician: Jimenez Olivares MD Referring Physician: Not on Staff, Referring MD Allergies, Adverse Reactions, Alerts Substance Reaction Severity Status amoxicillin Active Immunizations Given and Recorded Vaccine Date Status Refusal Reason influenza virus vaccine, inactivated 03/09/21 Give n influenza virus vaccine, inactivated 1 03/19/18 Gi cyd[place] influenza virus vaccine, inactivated 02/16/16 Give n influenza virus vaccine, inactivated 03/23/15 Give n influenza virus vaccine, inactivated 02/09/13 Give n influenza virus vaccine, inactivated 2 02/15/12 Gi cy[place] influenza virus vaccine, inactivated 3 02/01/11 Gi cydney influenza virus vaccine, inactivated 12/20/09 Give n SARS-CoV-2 (COVID-19) mRNA BNT-162b2 vac 08/26/20 Recorded SARS-CoV-2 (COVID-19) mRNA BNT-162b2 vac 08/04/20 Recorded Hepatitis A Pediatric Vaccine 10/11/16 Given Hepatitis A Pediatric Vaccine 03/08/16 Given Meningococcal Conjugate Vaccine 03/23/15 Given Meningococcal Conjugate Vaccine 4 04/05/10 Given influenza virus vaccine, live 12/23/13 Given Human Papillomavirus Vaccine 5 02/01/11 Given Human Papillomavirus Vaccine 6 04/05/10 Given Human Papillomavirus Vaccine 7 02/01/10 Given tetanus/diphtheria/pertussis, acel(Tdap) 8 02/01/10 Given influ virus vac, H1N1, inactive(oldterm) 9 01/26/09 Given Measles/Mumps/Rubella Virus Vaccine 09/17/03 Given Measles/Mumps/Rubella Virus Vaccine 02/14/00 Given Poliovirus Vaccine, Inactivated 01/19/03 Given Poliovirus Vaccine, Inactivated 09/04/00 Given Poliovirus Vaccine, Inactivated 02/20/99 Given Poliovirus Vaccine, Inactivated 98 Given Diphtheria/Tet/Pertussis, Acel (oldterm) 01/19/03 Given Diphtheria/Tet/Pertussis, Acel (oldterm) 09/04/00 Given Diphtheria/Tet/Pertussis, Acel (oldterm) 04/24/99 Given Diphtheria/Tet/Pertussis, Acel (oldterm) 02/20/99 Given Diphtheria/Tet/Pertussis, Acel (oldterm) 98 Given Pneumococcal Conjugate (PCV7) (oldterm) 09/04/00 G iven Pneumococcal Conjugate (PCV7) (oldterm) 02/14/00 G iven Pneumococcal Conjugate (PCV7) (oldterm) 11/08/99 G iven Haemophilus B Conj Vaccine (oldterm) 09/04/00 Give n Haemophilus B Conj Vaccine (oldterm) 04/24/99 Give n Haemophilus B Conj Vaccine (oldterm) 02/20/99 Give n Haemophilus B Conj Vaccine (oldterm) 98 Give n Hepatitis B Vaccine (old term) 02/14/00 Given Hepatitis B Vaccine (old term) 11/08/99 Given Hepatitis B Vaccine (old term) 08/15/99 Given Miscellaneous Vaccine 10 07/17/99 Given 1Result Comment: [id number] 2Admin Note: vis 09/17/2011 3Admin Note: vis given 10.10.2010 4Admin Note: VIS dated 04/14/2007 given 5Admin Note: vis 06.14.2009 given 6Admin Note: VIS dated 04/19/2006 given 7Admin Note: VIS DATED 06/14/09. Given 8Admin Note: VIS dated 02/03/08 9Admin Note: VIS GIVEN 10Admin Note: VARICELLA DISEASE Medications Aerochamber See Instructions, # 1 units, Refills 3, Tot. Refills 3, Maintenance, Use wit albuterol, 03/19/18 14:02:21 EST, Compound Start Date: 03/19/18 Status: Ordered albuterol CFC free 90 mcg/inh inhalation aerosol 180 mcg, 2, puffs, Inhalation, Every 4 hours, PRN, # 8 Gm, Refills 0, Tot. Refills 0, Maintenance, 03/09/21 9:27:00 EST, Inhaler, Route to Pharmacy Electronically, [id number], [facility] #[id number], 152, cm, 03/09/21 8:... Start Date: 03/09/21 Status: Ordered benzoyl peroxide 2.5% topical liquid 1 application, Topically, Daily in AM, If skin becomes too dry, use every other day, # 240 mL, 3 Refills, Maintenance, 03/19/18 14:12:21 EST, Liquid, 1 application Topically Daily in AM,Instr:If skinbecomes too dry, use every other day Start Date: 03/19/18 Status: Ordered Depo-Provera Contraceptive 150 mg/mL intramuscular suspension = 150 mg, Intramuscular, Every 3 months, # 1 mL, 4 Refills, Maintenance, 06/26/18 16:51:47 EDT Start Date: 06/26/18 Status: Ordered LaMICtal 25 mg oral tablet 50 mg, 2, tablet, By Mouth, Daily, # 60 tablet, Refills 0, Tot. Refills 0, Maintenance, 03/09/21 9:26:00 EST, Route to Pharmacy Electronically, [facility] #[id number], Partial fill upon patient request if the prescription is for a schedule II opi... Start Date: 03/09/21 Status: Ordered ProAir HFA 90 mcg/inh inhalation aerosol with adapter 2, puffs, Inhalation, Every 4 hours, as needed for wheezing, # 2 each, Refills 6, Tot. Refills 6, Maintenance, 03/19/18 14:01:54 EST, Route to Pharmacy Electronically, [id number], [facility]/pharmacy #[id number] Start Date: 03/19/18 Status: Ordered QUEtiapine 100 mg oral tablet 100 mg, 1, tablet, By Mouth, Daily at bedtime, # 30 tablet, Refills 0, Tot. Refills 0, Maintenance,03/09/21 9:27:00 EST, Route to Pharmacy Electronically, [facility] #[id number], Partial fill upon patient request if the prescription is for a angy... Start Date: 03/09/21 Status: Ordered tretinoin 0.025% topical cream 1 application, Topically, Daily at bedtime, If skin becomes too dry, use every other day, # 45 Gm, 3 Refills, Maintenance, 03/28/18 15:16:43 EST, Cream, 1 application Topically Daily at bedtime,Instr:If skin becomes too dry, use every other day Start Date: 03/28/18 Status: Ordered Problem List Condition Effective Dates Status Health Status Inform ant Acne(Confirmed) Active ASTHMA - mild, persistent(Confirmed) Active Asthma(Confirmed) Active Bipolar disorder with modera te depression(Confirmed) Active Depression(Confirmed) Active Obese class I(Confirmed) Active Overweight(Confirmed) Active Premenstrual syndrome(Confirmed) Active Results Radiology Reports * Exam Date Time Procedure Performing Provider Status 08/09/21 10:53 PM Chest Portable Janel Webb; Casandra coleman (Verified) Notes: (Chest Portable) Reason For Exam: Shortness of Breath RESULT: Chest Portable Chest Portable Reason: Shortness of Breath; Clinical Question(s): CHF COMPARISON: None. FINDINGS: LINES AND TUBES: None. LUNGS AND PLEURA: Low lung volumes. Clear lungs. Normal pulmonary vascularity. No pleural effusion. No pneumothorax. HEART, MEDIASTINUM AND JEAN-CLAUDE: Heart is normal in size. Normal upper mediastinal and hilar contour. BONES AND SOFT TISSUES: No acute abnormality. IMPRESSION: No acute abnormality. WSN: [id number] Ordering Physician: Matt Ricci Dictated By: Karyn Pineda MD Dictated Date/Time: 08/09/21 11:21 p Reviewed By: Karyn Pineda MD Signed By: Karyn Pineda MD Signed Date/Time: 08/09/21 11:21 pm Transcribed By: ANGELO Transcribed Date/Time: 08/09/21 11:20 pm Vital Signs Most recent to oldest [Reference Range]: 1 2 3 Oxygen Saturation [94-100 %] 100 % (08/10/21 12:54 AM) 100 % (08/09/21 9:48 PM) 100 % (08/09/21 9:47 PM) Pulse Rate [55-90 bpm] 112 bpm *H* (08/10/21 12:54 AM) 115 bpm *H* (08/09/21 9:48 PM) 118 bpm *H* (08/09/21 9:47 PM) Blood Pressure [90-138/55-84 mm Hg] 121/100mm Hg (08/10/21 12:54 AM) 136/101mm Hg (08/09/21 9:48 PM) 136/101mm Hg (08/09/21 9:47 PM) Respiratory Rate [16-30 br/min] 18 br/min (08/10/21 12:54 AM) 20 br/min (08/09/21 9:48 PM) 27 br/min (08/09/21 9:47 PM) Temperature [96.8-100.4 DegF] 97.8 DegF (08/09/21 9:47 PM) Mode of Delivery (Oxygen) Room air (08/10/21 12:54 AM) Room air (08/09/21 9:48 PM) Room air (08/09/21 9:47 PM) Blood pressure sites Arm, left (08/09/21 9:47 PM) Temperature Route Oral (08/09/21 9:47 PM) Social History Social History Type Response Smoking Status Never (less than 100 in lifetime) entered on: 03/02/21 Sex
[2023-10-05 20:30] VITALS: BP 111/76; PULSE 85; RESP 14; TEMP 37.3; O2SAT 98
== END 2023-10-05 20:32 | disposition home or self-care (01) ==
PROVIDERS: Emergency Provider Emergency Medicine
DX: Z03.89 Encounter for observation for other suspected diseases and conditions ruled out (principal); B19.10 Unspecified viral hepatitis B without hepatic coma
CPT/HCPCS: 99282; 99283

== ENCOUNTER → 2023-10-16 15:05 | Outpatient (BNVA) | payer MEDICAID, SELFPAY | PROVIDERS: Visit Provider Internal Medicine ==

== ENCOUNTER 2024-05-09 15:51 | Emergency (ER) | payer MEDICAID, SELFPAY ==
--- NOTE | ~2024-05-09 | US_ITS ---
CLINICAL HISTORY: pain infection TOA? US pelvis transabdominal and transvaginal Comparison: None Findings: Transabdominal and Transvaginal scanning performed. Anteverted uterus is 5.0 cm length. Linear echogenicity secondary to intrauterine device in place. Superior aspect of the intrauterine device is 1.2 cm from the fundus and/or upper imaged endometrium. Inferior aspect of the intrauterine device abuts the partially imaged cervix. (Image 27 of 42, series 1). Endometrium 6 mm thickness. No significant free fluid in the partially imaged pelvis. Right ovary measures 2.8 x 2.4 x 2.3 cm. Left ovary not definitively seen. IMPRESSION: 1. No findings of right-sided ovarian torsion. 2. Left ovary is obscured. 3. Superior aspect of the intrauterine device is borderline low in positioning with superior aspect 1.2 cm from the upper margin of the imaged endometrium. This document has been electronically signed by: Jimenez Medeiros MD on 05/09/2024 23:18:47
--- NOTE | 2024-05-09 16:21 | ED_ITS ---
HPI - General Adult General Chief complaint: General Medical Stated complaint: fever/vomiting no food or water down Time Seen by Provider: 05/09/24 20:21 Source: patient Limitations: no limitations History of Present Illness ED Provider: Domenica Perez PA-C HPI narrative: 23-year-old trans male currently on testosterone therapy, presents with multiple complaints. The patient is currently living in a [facility], there has been an influenza outbreak. The patient has developed fever, nausea, vomiting, body aches over the past 2-3 days. In addition, the patient notes that he has been spotting; the patient still has female genitalia and organs, and has an IUD in place. Patient does state that he has not been consistent with the his testosterone therapy, and has recently re-initiated the hormone treatment. Related Data Previous Rx's ?Medication ?Instructions ?Recorded doxycycline hyclate 100 mg tablet 100 mg PO BID 14 days #28 tabs 04/28/23 fluconazole 150 mg tablet 150 mg PO Q3D 2 doses #2 tabs 04/28/23 metronidazole 500 mg tablet 500 mg PO BID 14 days #28 tabs 04/28/23 cefuroxime axetil 250 mg tablet 250 mg PO BID #10 tabs 09/09/23 doxycycline monohydrate 100 mg 100 mg PO BID #10 caps 09/09/23 capsule acetaminophen 500 mg tablet 1,000 mg (2 x 500 mg) PO Q8H PRN 05/09/24 (Acetaminophen Extra Strength) fever or pain #20 tabs ibuprofen 600 mg tablet 600 mg PO Q6H PRN fever or pain 05/09/24 #20 tabs ondansetron HCl 4 mg tablet 4 mg PO Q8H PRN nausea and 05/09/24 vomiting #10 tabs Allergies Allergy/AdvReac Type Severity Reaction Status Date / Time amoxicillin [AMOXICILLIN] Allergy Unknown RASH Verified 05/09/24 16:23 Review of Systems 2 Review of Systems: Yes all other systems are reviewed and are negative Constitutional: Constitutional: Denies fatigue, Reports fever(s) and Reports malaise Cardiovascular: Cardiovascular: Denies chest pain and Denies dyspnea Respiratory: Respiratory: Denies cough and Denies dyspnea Gastrointestinal: Gastrointestinal: Reports nausea and Reports vomiting Endocrine: Endocrine: Denies fatigue PMFSH Past Medical History Attestation statement: The following information was validated with the patient. Social History Social History Alcohol intake: never Substance Use Type: Marijuana Advance Directives: No Advance Directives Information Provided: No Do you have a plan to hurt others: No Plan Physical Exam ED Vital Signs: Vital Signs - 24 hr 05/09/24 16:22 05/09/24 21:33 Temperature 99.8 F 99.2 F Pulse Rate 104 H 113 H Respiratory Rate 18 18 Blood Pressure 138/90 H 151/88 H Pulse Oximetry 100 100 Oxygen Delivery Method Room Air Room Air BMI result Body Mass Index 35.3 Const Other: Alert Orientation/consciousness: patient oriented x3 Resp Effort & Inspection: normal respiratory effort Cardio Other: Normal peripheral perfusion Skin Other: Warm dry no rash Neuro General: patient oriented x3, gait normal, no focal motor deficits and CN's II- XI intact bilaterally Psych Other: Cooperative Course Course Course Narrative: RME performed by Amada Kyle PA-C. Patient is a 23 year old assigned female, now male, at presenting to the emergency department with fever and vomiting. Detailed physical exam and review of systems are deferred to the manager registration. Labs and swabs ordered. Patient placed back in the waiting room pending room availability and results. Medications Administered Discontinued Medications Generic Name Dose Route Start Last Admin Trade Name Freq PRN Reason Stop Dose Admin Acetaminophen 975 mg 05/09/24 21:05 05/09/24 21:28 Acetaminophen 325 Mg Tablet PO 05/09/24 21:06 975 mg ONCE ONE Administration Sodium Chloride 1,000 mls @ 999 mls/hr 05/09/24 20:30 05/09/24 20:42 Ns IV 05/09/24 21:30 999 mls/hr .Q1H1M SALOMÓN Administration Ketorolac Tromethamine 15 mg 05/09/24 21:05 05/09/24 21:29 Ketorolac Tromethamine 15 Mg/Ml Vial IVPUSH 05/09/24 21:06 15 mg ONCE ONE Administration Ondansetron HCl 4 mg 05/09/24 20:21 05/09/24 20:42 Ondansetron Hcl 4 Mg/2 Ml Vial IVPUSH 05/09/24 20:22 4 mg ONCE ONE Administration Medical Decision Making Medical Decision Making MDM Narrative: 23-year-old trans male currently on testosterone therapy, presents with multiple complaints. The patient is currently living in a [facility], there has been an influenza outbreak. The patient has developed fever, nausea, vomiting, body aches over the past 2-3 days. In addition, the patient notes that he has been spotting; the patient still has female genitalia and organs, and has an IUD in place. Patient does state that he has not been consistent with the his testosterone therapy, and has recently re-initiated the hormone treatment. Problem: Hormonal therapy, infectious exposure History: Per patient I have considered the following differential diagnoses: Viral syndrome, acute intra-abdominal pathology, IUD migrating into uterine wall, side effects of testosterone therapy, Plan: Screening labs including a viral panel were obtained from triage, viral panel negative, the patient appears hemoconcentrated, is clearly dehydrated we will give IV fluid and Zofran. In regard to the spotting, I had discussed ordering an ultrasound to verify IUD placement, I also discussed with the patient that he could be having breakthrough bleeding secondary to reinitiating the testosterone, this is a side effect. They are declining the transvaginal ultrasound, they will follow up with their vehicle fare collector. I have independently reviewed the following tests: Labs: Slight leukocytosis, the patient was hemoconcentrated, no electrolyte abnormality, viral panel negative Lab Data 05/09/24 16:35 05/09/24 16:35 Labs: Lab Results 05/09/24 Range/Units 16:35 WBC 12.7 H (4.8-10.8) X10*3/uL RBC 5.56 H (4.20-5.50) X10*6/uL Hgb 16.7 H (12.0-16.0) g/dl Hct 47.8 H (37.0-47.0) % MCV 86.0 (80.0-98.0) fL MCH 30.0 (27.0-33.0) pg MCHC 34.9 (31.0-35.0) g/dl RDW 13.0 (11.0-16.0) % Plt Count 262 (160-400) X10*3/uL MPV 8.9 L (9.4-12.3) fL Immature Gran % (Auto) 0.4 (0.0-0.4) % Neut % (Auto) 95.8 H (45-73) % Lymph % (Auto) 1.4 L (20-40) % [place] % (Auto) 2.3 (2-11) % Eos % (Auto) 0.0 (0-4) % Baso % (Auto) 0.1 (0-2) % Lymph # (Auto) 0.2 L (1.2-4.9) X10*3/uL [place] # (Auto) 0.3 (0.1-1.2) X10*3/uL Eos # (Auto) 0.0 (0.0-0.4) X10*3/uL Baso # (Auto) 0.0 (0.0-0.2) X10*3/uL Abs Immat Gran (auto) 0.05 H (0.00-0.03) X10*3/uL Absolute Neuts (auto) 12.1 H (2.0-8.3) x10*3/uL Absolute Nucleated RBC 0.000 (0.0-0.012) X10*3/uL Nucleated RBC % (auto) 0.0 (0.0-0.2) /100WBC Smear Tech's Comments VERIFIED Sodium 140 (135-145) mmol/L Potassium 4.3 (3.3-5.1) mmol/L Chloride 107 (96-108) mmol/L Carbon Dioxide 23 (22-29) mmol/L Anion Gap 14 (12-20) BUN 13 (9-16) mg/dL Creatinine 0.92 (0.5-1.4) mg/dL Estim Creat Clear Calc 88.7 Estimated GFR > 60 Random Glucose 99 (60-115) mg/dL Calcium 10.0 (8.4-10.2) mg/dL Magnesium 1.9 (1.6-2.6) mg/dL Total Bilirubin 1.3 H (0.0-1.0) mg/dL AST 24 (5-31) U/L ALT 24 (0-31) U/L Alkaline Phosphatase 96 (39-117) U/L Total Protein 8.7 H (6.5-8.0) g/dL Albumin 4.6 (3.5-5.0) g/dL Influenza Type A (PCR) NEGATIVE (Negative) Influenza Type B (PCR) NEGATIVE (Negative) RSV RNA Qual (PCR) NEGATIVE (Negative) SARS-CoV-2 RNA (RT-PCR) NEGATIVE (Negative) Discharge Plan Discharge Clinical Impression: Acute viral syndrome Patient Disposition: Home, Self-Care Instructions: Viral Syndrome (ED) Additional Instructions: Your screening labs revealed that you were slightly dehydrated, you received IV fluid therapy. The viral panel was negative. You could still have influenza, if your viral load was not appropriate, this could yield a false negative result. See home care instructions. Use the ibuprofen 600 mg taken every 6 hours with food, alternated with Tylenol 1000 mg taken every 8 hours, as needed for headache, body ache and/or fever. Uses Zofran as needed for nausea. Follow up with your primary care provider as needed. Prescriptions: New ondansetron HCl 4 mg tablet 4 mg PO Q8H PRN (Reason: nausea and vomiting) Qty: 10 0RF acetaminophen [Acetaminophen Extra Strength] 500 mg tablet 1,000 mg PO Q8H PRN (Reason: fever or pain) Qty: 20 0RF ibuprofen 600 mg tablet 600 mg PO Q6H PRN (Reason: fever or pain) Qty: 20 0RF No Action fluconazole 150 mg tablet 150 mg PO Q3D Qty: 2 0RF metronidazole 500 mg tablet 500 mg PO BID 14 Days Qty: 28 0RF doxycycline hyclate 100 mg tablet 100 mg PO BID 14 Days Qty: 28 0RF doxycycline monohydrate 100 mg capsule 100 mg PO BID Qty: 10 0RF cefuroxime axetil 250 mg tablet 250 mg PO BID Qty: 10 0RF Print Language: Nicaraguan
[2024-05-09 16:22] VITALS: BP 138/90; PULSE 104; RESP 18; TEMP 37.7; O2SAT 100; BMI 35.3
[2024-05-09 16:56] LABS: Basophils Percent Auto 0.1 % (0-2); Hematocrit 47.8 % (37.0-47.0); Hemoglobin 16.7 g/dl (12.0-16.0); Imm Gran Abs Auto 0.05 X10*3/uL (0.00-0.03); Imm Gran Pct Auto 0.4 % (0.0-0.4); Lymphocytes Absolute Auto 0.2 X10*3/uL (1.2-4.9); Lymphocytes Percent Auto 1.4 % (20-40); MANUAL DIFF FLAG SCAN; Mean Corpuscular HGB Conc 34.9 g/dl (31.0-35.0); Mean Platelet Volume 8.9 fL (9.4-12.3); Monocytes Absolute Auto 0.3 X10*3/uL (0.1-1.2); Monocytes Percent Auto 2.3 % (2-11); Neutrophils Absolute Auto 12.1 x10*3/uL (2.0-8.3); Neutrophils Percent Auto 95.8 % (45-73); Platelet Count 262 X10*3/uL (160-400); Red Blood Count 5.56 X10*6/uL (4.20-5.50); SCAN SMEAR FLAG 1; White Blood Count 12.7 X10*3/uL (4.8-10.8)
[2024-05-09 17:15] LABS: Alanine Aminotransferase 24 U/L (0-31); Albumin Level 4.6 g/dL (3.5-5.0); Alkaline Phosphatase 96 U/L (39-117); Anion Gap 14 (12-20); Aspartate Amino Transferase 24 U/L (5-31); Bilirubin Total 1.3 mg/dL (0.0-1.0); Blood Urea Nitrogen 13 mg/dL (9-16); Carbon Dioxide 23 mmol/L (22-29); Chloride 107 mmol/L (96-108); Creatinine Clr Calc Pharmacy 88.7; Estimated Glomerular Filt Rate > 60; Glucose Random 99 mg/dL (60-115); Magnesium 1.9 mg/dL (1.6-2.6); Potassium 4.3 mmol/L (3.3-5.1); Sodium 140 mmol/L (135-145); Total Protein 8.7 g/dL (6.5-8.0)
[2024-05-09 17:40] LABS: SLIDE REVIEW VERIFIED
[2024-05-09 17:45] LABS: Influenza A PCR NEGATIVE (Negative); Influenza B PCR NEGATIVE (Negative); Resp Syncy Virus RNA Qual PCR NEGATIVE (Negative); SARS COV2 PCR INHOUSE NEGATIVE (Negative)
[2024-05-09] MEDS: ondansetron HCL 4 MG/2 ML VIAL IVPUSH (20:42)
[2024-05-09] MEDS: 0.9 % Sodium Chloride 1,000 ML 999 ML IV (20:42)
[2024-05-09] MEDS: Acetaminophen 325 MG TABLET 975 MG PO (21:28)
[2024-05-09] MEDS: Ketorolac Tromethamine 15 MG/ML VIAL IVPUSH (21:29)
[2024-05-09 21:33] VITALS: BP 151/88; PULSE 113; RESP 18; TEMP 37.3; O2SAT 100
[2024-05-09 23:00] VITALS: BP 151/88; PULSE 113; RESP 18; TEMP 37.3; O2SAT 100
== END 2024-05-09 23:00 | disposition home or self-care (01) ==
PROVIDERS: Physician Assistant Medical; Emergency Provider Emergency Medicine
DX: B34.9 Viral infection, unspecified (principal); R50.9 Fever, unspecified; Z03.818 Encounter for observation for suspected exposure to other biological agents ruled out; F64.0 Transsexualism; Z79.890 Hormone replacement therapy; Z91.148 Patient's other noncompliance with medication regimen for other reason
CPT/HCPCS: 0241U; 76830; 76856; 80053; 83735; 85025; 96374; 96375; 99284; J1885; J2405

== ENCOUNTER → 2024-05-09 21:05 | Outpatient (BNV) | payer MEDICAID, SELFPAY | PROVIDERS: Emergency Provider Emergency Medicine; Visit Provider Radiology Neuroradiology | DX: N93.8 Other specified abnormal uterine and vaginal bleeding (principal) | CPT/HCPCS: 76830; 76856 ==

== ENCOUNTER 2025-02-08 13:57 | Emergency (ER) | payer MEDICAID, SELFPAY ==
--- NOTE | ~2025-02-08 | XR_ITS ---
EXAMINATION: XR KNEE, LEFT CLINICAL INFORMATION: pain COMPARISON: None available. TECHNIQUE: Four views of the left knee. FINDINGS: No fracture, dislocation, or suspicious bone lesion. Normal bone mineralization. Normal alignment. Joint spaces are preserved. No significant arthropathy. No significant joint effusion. Soft tissues appear normal. XR/XR knee LT 4V IMPRESSION: Normal left knee. Electronically signed by: Jesus Thao MD 02/08/2025 02:49 PM KIRSTY
[2025-02-08 14:14] VITALS: BP 113/76; PULSE 92; RESP 16; TEMP 36.8; O2SAT 98; BMI 31.2
--- NOTE | 2025-02-08 14:15 | ED_ITS ---
HPI - Extremity Injury (Lower) General Chief Complaint: Extremity Problem Stated Complaint: Knee Leg Pain Time Seen by Provider: 02/08/25 15:37 Source: patient and family (Significant other at bedside) Mode of arrival: ambulatory Limitations: no limitations History of Present Illness ED Provider: DYLAN Beasley HPI Narrative: 24-year-old transgender male on testosterone therapy, presents with acute on chronic left knee pain. Patient states he has had ongoing knee pain since 2022. Patient reports injury that occurred the end of December where he was walking his 80 lb pit bull dog, and was pulled to the ground and landed on the left knee on the grass with progressive pain since the incident occured. Patient states he does not have a car at this time and takes the bus to get around and walks the rest of the distance to his locations making pain worse. Patient states he saw PCP in 2022 who prescribed topical arthritic cream however this has not been helping his pain. Patient also reports taking Tylenol and ibuprofen without relief, is unable to bear weight on the knee without pain. Related Data Previous Rx's ?Medication ?Instructions ?Recorded doxycycline hyclate 100 mg tablet 100 mg PO BID 14 day s #28 tabs 04/28/23 fluconazole 150 mg tablet 150 mg PO Q3D 2 doses #2 tab s 04/28/23 metronidazole 500 mg tablet 500 mg PO BID 14 days #28 tabs 04/28/23 cefuroxime axetil 250 mg tablet 250 mg PO BID #10 tabs 09/09/23 doxycycline monohydrate 100 mg 100 mg PO BID #10 caps 09/09/23 capsule acetaminophen 500 mg tablet 1,000 mg (2 x 500 mg) PO Q 8H PRN 05/09/24 (Acetaminophen Extra Strength) fever or pain #20 tabs ibuprofen 600 mg tablet 600 mg PO Q6H PRN fever or p ain 05/09/24 #20 tabs ondansetron HCl 4 mg tablet 4 mg PO Q8H PRN nausea and 05/09/24 vomiting #10 tabs ketorolac 10 mg tablet 10 mg PO Q8H PRN pain 3 days #12 02/08/25 tabs Allergies Allergy/AdvReac Type Severity Reaction Status Date / Time amoxicillin (AMOXICILLIN) Allergy Unknown RASH Verified 02/08/25 14:20 Review of Systems Review of Systems: CONST: Negative for fever, body aches and chills. HENT: Negative for neck pain/stiffness, headache, congestion, sore throat, swelling. EYES: Negative for discharge/pain or vision changes. RESP: Negative for cough/hemoptysis and shortness of breath. CV: Negative chest pain, difficulty breathing, palpitations. ABD: Negative pain, nausea, vomiting. : Negative increase frequency, dysuria, blood in urine or stool. MUSC: Negative for muscle aches, edema. POS anterior L knee pain SKIN: Negative rash, lesions/sores. NEURO: Negative headache, dizziness, weakness. [facility] Past Medical History Attestation statement: The following information was validated with the patient. Source: old records reviewed, obtained from family (Significant other at bedside corroborating history) and nursing notes reviewed Social History Social History Alcohol intake: never Substance Use Type: Marijuana Advance Directives: No Advance Directives Information Provided: No Physical Exam Vital Signs: Vital Signs: Last Vital Signs Temp 98.3 F 02/08/25 14:14 Pulse 92 02/08/25 14:14 Resp 16 02/08/25 14:14 BP 113/76 02/08/25 14:14 Pulse Ox 98 02/08/25 14:14 O2 Del Method Room Air 02/08/25 14:14 BMI result Body Mass Index 31.2 GENERAL APPEARANCE: ?AxOx4, generally well-appearing, no acute distress. HEENT: ?NC, AT. MMM. EOMI, clear conjunctiva, oropharynx clear. NECK: ?Supple without lymphadenopathy.? No stiffness or restricted ROM. HEART:? Normal rate and regular rhythm, normal S1/S1, no m/r/g LUNGS:? CTAB, moving air well. No crackles or wheezes are heard. ABDOMEN: ?Soft, nontender, nondistended with good bowel sounds heard. BACK: No CVAT, no obvious deformity. EXTREMITIES: ?Without cyanosis, clubbing or edema. TTP of anterior and lateral patella, ROM intact but does have pain in flexion, no high or low riding pa tella, no anatomical abnormalities palpated, popliteal pulses 2+, DP pulses 2+, the limb is vascularly intact and well perfused, no tenderness to palpation of the calf, no pain when palpating the posterior knee, no ecchymosis or overlying skin changes NEUROLOGICAL: ?Grossly nonfocal. Alert and oriented, moving all 4 extremities. Observed to ambulate with normal gait. Skin: ?Warm and dry without any rash. Course Course Course Narrative: This is an RME: Additional HPI, ROS, PE not included below will be deferred to primary provider. RME assessment and note performed by: Yaima Valencia PA-C This is a [id number] assigned at trans male on testosterone therapy, who presents to the ER with concerns of left knee pain x 2 weeks. Has had problems in knee since 2022. Walks alot. Pt reports they fell on top on the knee several weeks ago. Plan: xrays, further Er eval needed Medical Decision Making Medical Decision Making MDM Narrative: 24-year-old transgender male on testosterone therapy, presents with acute on chronic left knee pain that has gotten progressively worse after his 80 lb pit bull pulled him to the ground landing on the left knee approximately 1 month ago. Patient has been taking Tylenol and ibuprofen without effect, can not bear weight on the knee. VS on initial observation-BP 113/76, pulse rate of 92, respiratory rate of 16, afebrile with oral temp of 98.3?, O2 saturation 98% on room air. On physical exam the left extremity is Without cyanosis, clubbing or edema. TTP of anterior and lateral patella, ROM intact but does have pain in flexion, no high or low riding patella, no anatomical abnormalities palpated, popliteal pulses 2+, DP pulses 2+, the limb is vascularly intact and well perfused, compartments soft, no tenderness to palpation of the calf, no pain when palpating the posterior knee, no ecchymosis or overlying skin changes XR L knee is WNL and negative for fracture, dislocation, large joint effusion, bone lesions Patient with acute on chronic left knee pain that has gotten worse after a fall approximately 4 weeks ago. Imaging negative for fracture, dislocation or large joint effusion. Patient with tenderness of the anterior knee, ROM intact however does have pain when flexing the knee, popliteal and DP pulses 2+, the limb is well-perfused, compartments soft. Pain is most likely musculoskeletal in origin, strain vs patellofemoral syndrome due to the laterality of the pain, may have meniscal tear from past injury. Patient being medicated in the department with 30 mg IM Toradol, 975 p.o. Tylenol. Patient will be discharged with 3 day course of Toradol for pain management. I counseled patient on WHATLEY treatment and will referral to orthopedics for possible further evaluation of injury and referral for physical therapy. Patient has a velcro knee brace he is using that helps with pain, and will be provided with crutches for support. Patient in agreement with the plan. Differential Diagnosis Differential Diagnoses: The differential diagnosis associated with the presentation includes Compartment syndrome Patella fracture Patella dislocation Meniscal tear ACL tear Musculoskeletal pain Patellofemoral syndrome Admission/Observation Consideration of admission/observation: Escalation of care including admission/observation considered Independent Interpretation I performed an independent interpretation of an: Plain X-Ray Interpretation: I personally interpreted the XR L knee which was negative for fracture, dislocation, large joint effusion, I agree with the radiologist's interpretation Radiology Impression Discussion of test interpretation with radiology: I have reviewed the radiologist's reading. Radiologist Impression: XR L knee FINDINGS: No fracture, dislocation, or suspicious bone lesion. Normal bone mineralization. Normal alignment. Joint spaces are preserved. No significant arthropathy. No significant joint effusion. Soft tissues appear normal. XR/XR knee LT 4V IMPRESSION: Normal left knee. Electronically signed by: Jesus Thao MD 02/08/2025 02:49 PM [facility] Dictated By: Jesus Thao MD Signed By: <Electronically signed by Jesus Thao MD in OV> 02/08/25 1449 Independent Historian Clinical information obtained from an independent historian. History obtained from or confirmed by: Spouse (Significant other at bedside corroborating history) External Record Review External record reviewed: Inpatient record, Office record and Outpatient record Chronic Conditions Patient?s care impacted by: Other (No known medical history) Social Determinants Patient?s care significantly limited by Social Determinants of Health including: Inadequate housing and Other Social Determinant of Health Discharge Plan Discharge Clinical Impression: Knee pain Patient Disposition: Home, Self-Care Instructions: Knee Pain (ED) Additional Instructions: You were evaluated in the emergency department for left knee pain. Your x-rays were negative for fracture, dislocation or fluid in the joint space. Your physical exam is consistent with a musculoskeletal pain, possible meniscal tear/ACL tear, or patellofemoral syndrome. You were medicated with 30 mg intramuscular injection of Toradol which is a strong NSAID like ibuprofen, and 975 mg of oral Tylenol. You are being discharged with 3 days of Toradol for pain management. During this time you can take 500 mg of Tylenol every 4 hours, do not take any other NSAIDs such as ibuprofen, Motrin, Aleve or use your topical arthritic cream. Once you have finished taking Toradol, you can then take 500 mg of Tylenol and 400 mg of ibuprofen every 6 hours, ice the affected area in 20 minute increments, elevate the leg above heart height, and provide compression either through Emmanuel bandage or your knee brace. It is important that you stay on top of the pain for management. I am placing a referral to orthopedics office for you, please call their office tomorrow morning to become established as they will not call you. You may need additional imaging such as MRI for further evaluation, or referral to physical therapy for management of your pain. Prescriptions: New ketorolac 10 mg tablet 10 mg PO Q8H PRN (Reason: pain) 3 Days Qty: 12 0RF Rx Instructions: Patient was medicated with 30 mg intramuscular injection of Toradol while in the emergency department for pain management. No Action fluconazole 150 mg tablet 150 mg PO Q3D Qty: 2 0RF metronidazole 500 mg tablet 500 mg PO BID 14 Days Qty: 28 0RF doxycycline hyclate 100 mg tablet 100 mg PO BID 14 Days Qty: 28 0RF doxycycline monohydrate 100 mg capsule 100 mg PO BID Qty: 10 0RF cefuroxime axetil 250 mg tablet 250 mg PO BID Qty: 10 0RF ondansetron HCl 4 mg tablet 4 mg PO Q8H PRN (Reason: nausea and vomiting) Qty: 10 0RF acetaminophen [Acetaminophen Extra Strength] 500 mg tablet 1,000 mg PO Q8H PRN (Reason: fever or pain) Qty: 20 0RF ibuprofen 600 mg tablet 600 mg PO Q6H PRN (Reason: fever or pain) Qty: 20 0RF Referrals: [facility] Orthopedic Surgeons [Provider Group] Print Language: Luxembourgish
[2025-02-08 16:46] VITALS: BP 113/76; PULSE 92; RESP 16; TEMP 36.8; O2SAT 98
--- OUTSIDE RECORDS SUMMARY | 2025-02-08 20:21 | XMS_ITS | Encounter Summary ---
Author Organization [facility] Address [address] [place] [phone] Phone Care Team Providers Care [facility] Worker Name Role Phone Unknown, Unknown Primary Care Provider Garth Guevara Unavailable [email or web address] Nicole Kc MD Primary Care Prov ider Kristine Leon CNP Primary Care Provider [phone] Kassandra Tang DNP Unavailable Ita Burks LICENSING WORKER Unavailable [phone] Garth Crabtree LICENSING WORKER Unavailable [email or web address] Nixon Hogue Primary Care Provider [phone] Charlotte Fofana CNP Primary Care Provid er Encounter Details Date Type Department Care Team (Late st Contact Info) Description 09/28/2022 Telephone [facility] [address] [place] [address] Garth Crabtree LICENSING WORKER [address], [place] Social History Tobacco Use Types Packs/Day Years Used Date Smoking Tobacco: Never Assessed Child or Family Care Answer Date Record ed Do you have problems with on e of the following making it difficult for you to work, study, or receive health care? No 08/31/2022 Education Answer Date Recorded Are you interested in help w ith more adult education (for example, completing high school, GED, job training, learning the [place] language, technical skills, or developing parenting skills)? No 08/31/2022 Are you concerned about learning? Not on file 08/31/2022 No 08/31/2022 Yes 08/31/2022 Food Answer Date Recorded Within the past 6 months we worried whether our food would run out before we got money to buy more. Often True 08/31/2022 Within the past 6 months the food we bought just didn't last and we didn't have enough money to get more. Often True Residential Stability Answer Date Recor ded What is your housing situation today? I have annette sing 08/31/2022 How many times have you move d in the past 12 months? I choose not to answer 08/31/2022 Paying for Meds Answer Date Recorded Do you have trouble paying for medicines? Yes 08/31/2022 Paying Utility Bills Answer Date Record ed Do you have trouble paying y our heating or electricity bill? I choose not to answer 08/31/2022 Transportation Answer Date Recorded Has the lack of transportati on kept you from medical appointments or from getting medications? No 08/31/2022 Unemployment Answer Date Recorded Are you currently unemployed or working on a part-time or temporary basis, and looking for work? Yes 08/31/2022 Digital Access Answer Date Recorded No 08/31/2022 Yes 08/31/2022 Do you have reliable internet access at home? Ye s 08/31/2022 Do you have a device (e.g., phone, tablet, computer) with a working camera? Yes 08/31/2022 Comments Unknown Sex and Gender Information Value Date Recorded Sex Assigned at Not on file Legal Sex Female 8:19 AM EDT Gender Identity Non-binary 10/09/2023 11:41 AM EDT Sexual Orientation Queer 08/31/2022 10 :57 AM EDT documented as of this encounter Plan of Treatment Upcoming Encounters Date Type Department Care Team (Late st Contact Info) Description 02/16/2025 2:00 PM EST Social Work [facility] [address] [place] [phone] Garth Crabtree, QUINCY [address], [place] 03/16/2025 2:00 PM EST Social Work [facility] [address] [place] [phone] Garth Crabtree LICSW [address], [place] [email or web address] documented as of this encounter Visit Diagnoses Not on filedocumented in this encounter Care Teams Child Day Care Center Worker Relationship Specialty Start Date End Date Unknown, Unknown, PCP - General 03/14/22 11/19/22 Nicole Kc MD [address] [place] [address] [email or web address] PCP - General Family Medicine 11/20/22 3 Kristine Leon, [employer] [address] [place] [phone] PCP - General 11/29/22 06/26/23 Nixon Hogue [address] [place] [phone] PCP - General 06/27/23 12/03/23 Charlotte Fofana, CONNER [address] [place] [phone] [email or web address] PCP - General Nurse Practitioner 12/04/23 Garth Crabtree LICSW [address] [place] [address] [email or web address] Dope Weigh Operator 03/20/22 02/03/23 Kassandra Tang DNP [address] [place] [address] [address] [address] [place] [address] 11/29/22 01/07/24 Ita Burks LICSW [address] [place] [phone] [email or web address] Dope Weigh Operator 02/04/23 Garth Crabtree LICSW [address] [place] [address] [email or web address] Dope Weigh Operator 02/22/23 documented as of this encounter Additional Source Comments The information contained in this document represents components of the legal health record. It is not the complete legal health record.[facility]
--- OUTSIDE RECORDS SUMMARY | 2025-02-08 20:21 | XMS_ITS | Clinical Summary ---
Author Organization [facility] Address [address] [place] [address] Phone Care Team Providers Care Postage Machine Operator Name Role Phone Ita Burks DOCK GUARD Unavailable [phone] BroGarth romero DOCK GUARD Unavailable [email or web address] Charlotte Fofana [facility] Primary Care Provid er Allergies Active Allergy Reactions Criticality Noted Date Comments Amoxicillin Rash Low 09/17/2022 Nickel Rash Low 06/27/2023 Pork/Porcine Containing Products Other (See Comments) 09/17/2022 Islam reasons Medications lamoTRIgine (LAMICTAL) 200 MG IMMEDIATE release tablet Take 200 mg by mouth every morning. 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 4 Active albuterol 90 mcg/actuation inhalerIndicatio ns:Moderate persistent asthma without complication Inhale 2 puffs into the lungs continuous prn for wheezing or shortness of breath/dyspnea. 8 g 2 5 Active testosterone cypionate (DEPO-TESTOTERON E) 200 mg/mL injectionIndicat ions:Gender dysphoria Inject 0.3 mL (60 mg total) under the skin every 7 days. 4 mL 2 5 Active docusate sodium (COLACE) 100 MG capsuleIndicatio ns:Constipation, unspecified constipation type Take 1 capsule (100 mg total) by mouth 2 (two) times a day. 60 capsule 3 5 Active multivitamin per tabletIndication s:Healthcare maintenance Take 1 tablet by mouth daily. 90 tablet 3 5 Active copper (PARAGARD) 380 square mm intrauterine device 1 Device by Intrauterine route Once every 10 years. Active terbinafine HCL (LAMISIL) 1 % creamIndications :Tinea pedis of both feet Apply topically 2 (two) times a day. 30 g 5 Active Active Problems Problem Noted Date Diagnosed Date Chronic pain of both knees 10/17/2023 Housing instability due to imminent risk of home lessness 06/27/2023 Acne 04/14/2023 Bipolar affective disorder, currently depressed, moderate 04/14/2023 Adjustment disorder 03/20/2023 Gender dysphoria 12/13/2022 Anxiety 09/17/2022 Asthma 09/17/2022 Depression 09/17/2022 Chronic post-traumatic stress disorder (PTSD) Resolved Problems Problem Noted Date Diagnosed Date Resolved Date Class 1 obesity 04/14/2023 06/27/2023 Premenstrual tension syndrome 04/14/2023 06/27/2023 Encounters Date Type Department Care Team Description 01/19/2025 2:00 PM EST Social Work [facility] [address] [place] [address] Garth Crabtree, [facility] 12/22/2024 Telephone [facility] [address] [place] [address] Rios Saxena 12/01/2024 2:00 PM EDT Social Work [address] [address] Garth Crabtree, DOCK GUARD 11/09/2024 10:00 AM EDT Office Visit [facility] [address] [place] [address] Charlotte Fofana CNP Encounter for annual physical exam (Primary Dx); Tinea pedis of both feet from Last 3 Months Immunizations Immunization Administration Dates Next Due DTaP 01/19/2003, 1,04/24/1999,02/20,1998 Declined 07/17/1999 [id number] FORMULATION 01/26/2009 HPV,quadrivalent 02/01/2011,04/05/2010, 0 Hepatitis A, ped/adol, 2 dose 10/11/2016, 016 Hepatitis B, unspecified formulation 02/14/2000, 11/08/1999,08/15/1999 Hib, unspecified formulation 09/04/2000, 04/24/1999,02/20/1999,12/19 INFLUENZA, SPLIT VIRUS, TRIV ALENT W/ PRESERVATIVE IM 03/19/2018,02/16/2016,03/23/2015,02/09,02/15/2012,02/01/2011,12/20/2009 IPV 01/19/2003, 1,02/20/1999,12/19 Influenza Quadrivalent Prese rvative Free IM 12/19/2022,12/29/2021,03/09/2021 Influenza quadrivalent nasal 12/23/2013 MMR 09/17/2003,02/14/2000 Meningococcal ACWY, unspecif ied formulation 03/23/2015,04/05/2010 Pneumococcal conjugate, PCV 7 09/04/2000, 000,11/08/1999 Tdap 12/19/2022,07/16/2022,02/01/2010 Family History Medical History Relation Comments No Known Problems Father Heart disease Maternal Grandfather Hyperlipidemia Maternal Grandfather Kidney disease Maternal Grandmother Nephrolithiasis Mother Diabetes Paternal Grandmother Relation Status Comments Father Maternal Grandfather Maternal Grandmother Alive Mother Paternal Grandfather Alive Paternal Grandmother Alive Social History Tobacco Use Types Packs/Day Years Used Date Smoking Tobacco: Never Smokeless Tobacco: Never Alcohol Use Standard Drinks/Week Comments Not Currently 0 (1 standard drink = 0.6 oz pur e alcohol) Child or Family Care Answer Date Record ed Do you have problems with on e of the following making it difficult for you to work, study, or receive health care? No 07/31/2023 Education Answer Date Recorded Are you interested in help w ith more adult education (for example, completing high school, GED, job training, learning the Salvadorean language, technical skills, or developing parenting skills)? No 07/31/2023 Are you concerned about learning? Not on file 07/31/2023 No 07/31/2023 Yes 07/31/2023 Food Answer Date Recorded Within the past 6 months we worried whether our food would run out before we got money to buy more. Often True 024 Within the past 6 months the food we bought just didn't last and we didn't have enough money to get more. Sometimes True 07/16 Residential Stability Answer Date Recor ded What is your housing situation today? I have a place to live today, but I am worried about losing it in the next 3 months 07/31/2023 How many times have you move d in the past 12 months? Two or more times 07/31/2023 Paying for Meds Answer Date Recorded Do you have trouble paying for medicines? No 07/31/2023 Paying Utility Bills Answer Date Record ed Do you have trouble paying your heating or elect ricity bill? Yes 07/31/2023 Transportation Answer Date Recorded Has the lack of transportati on kept you from medical appointments or from getting medications? No 07/31/2023 Unemployment Answer Date Recorded Are you currently unemployed or working on a part-time or temporary basis, and looking for work? Yes 07/31/2023 Digital Access Answer Date Recorded Yes 07/31/2023 Yes 07/31/2023 Do you have reliable internet access at home? No 07/31/2023 Do you have a device (e.g., phone, tablet, computer) with a working camera? Yes 07/31/2023 SNAP & WIC Answer Date Recorded Do you receive benefits from SNAP (the Supplemental Nutrition Assistance Program) or the Food Stamp Program? Yes 07/31/2023 SNAP is a free program, interested in learning m ore? Not on file 07/31/2023 Can we help you enroll in SNAP? Not on file 07/31/2023 Benefits received from WIC? Not on file 07/16 WIC is a free program, interested in learning mo re? Not on file 07/31/2023 Can we help you enroll in WIC? Not on file 0 07/31/2023 Intimate Partner Violence Answer Date R ecorded Denied Basic Needs Not on file 06/19/2024 In the past 12 months have y ou been in a relationship with a person who hurts, threatens, or tries to control you? Deferred 06/19/2024 Worried food would run out Not on file 06/19 In the past 12 months have y ou been in a relationship with a person who hurts, threatens, or tries to control you? Deferred 06/19/2024 Comments Unknown Sex and Gender Information Value Date Recorded Sex Assigned at Not on file Legal Sex Female 8:19 AM EDT Gender Identity Non-binary 10/09/2023 11:41 AM EDT Sexual Orientation Queer 08/31/2022 10 :57 AM EDT Last Filed Vital Signs Vital Sign Reading Time Taken Comments Blood Pressure 115/70 11/09/2024 10:05 AM EDT Pulse 90 11/09/2024 10:05 AM EDT Temperature 36.4 C (97.5 F) 06/27/2023 2:03 PM EDT Respiratory Rate - - Oxygen Saturation 99% 11/09/2024 10:05 AM EDT Inhaled Oxygen Concentration - - Weight 75.8 kg (167 lb 3.2 oz) 11/09/2024 10:05 AM EDT Height 154.9 cm (5' 1 ) 11/09/2024 10:05 AM EDT Body Mass Index 31.59 11/09/2024 10:05 AM EDT Plan of Treatment Upcoming Encounters Date Type Department Care Team (Late st Contact Info) Description 02/16/2025 2:00 PM EST Social Work [facility] [address] [place] [address] Garth Crabtree LICSW [address] [place] [address] 03/16/2025 2:00 PM EST Social Work [facility] [address] [place] [address] Garth Crabtree LICSW [address] [place] [address] Health Maintenance Due Date Last Done Comments INFLUENZA VACCINE (#1) 2024 , 12/19/2022, 12/29/2021, Additional history exists COVID-19 VACCINE ( season) 2024 02/01/2023, 08/26/2020, 08/04/2020 PAP SMEAR 07/05/2025 Postponed from 11/02/2019 (Not Clinically Appropriate) DEPRESSION SCREENING 11/09/2025 11/09/2024, 11/10/19 HIV ONE-TIME SCREENING (18-65 YEARS) 11/09/2025 Postponed from 2016 (Not Clinically Appropriate) PNEUMOCOCCAL VACCINES (0-49 years) (1 of 2 - PCV) 11/09/2025 09/04/2000, 02/14/2000, 11/08/1999 Postponed from 2017 (Patient Declines / Guardian Declines) HEPATITIS C SCREENING 11/09/2026 Postpo carmine from 2016 (Not Clinically Appropriate) Adult Td,Tdap Booster 12/19/2032 12/19/2022 , 07/16/2022, 02/01/2010 HIB VACCINES Completed 09/04/2000, 09/1999, 02/20/1999, Additional history exists MENINGOCOCCAL VACCINES (ACWY) Completed 03/23/2015, 04/05/2010 HEPATITIS A VACCINES Completed 10/11/2016, 03/08/20 16 HPV VACCINES Completed 09/09/2023, 01/16, 04/05/2010, Additional history exists SMOKING STATUS SCREENING (Once After 26 Yrs) Completed 11/09/2024 MENINGOCOCCAL VACCINES (B) Aged Out N o longer eligible based on patient's age to complete this topic Medical Devices Not on file Insurance [place] Care Teams Postage Machine Operator Relationship Specialty Start Date End Date ViolaEvangelistMike Charlotte LutherCONNER [address] [place] [address] [email or web address] PCP - General Nurse Practitioner 12/04/23 Ita Burks [facility] [address] [place] [phone] [email or web address] Kids Activities Coach 02/04/23 Garth Crabtree [facility] [address] [place] [address] [email or web address] Kids Activities Coach 02/22/23 Additional Source Comments The information contained in this document represents components of the legal health record. It is not the complete legal health record.[facility]
--- OUTSIDE RECORDS SUMMARY | 2025-02-08 20:21 | XMS_ITS | Encounter Summary ---
Author Organization [facility] Address [address] [place] [address] Phone Care Team Providers Care Gas Reverser Name Role Phone Unknown, Unknown Primary Care Provider Garth Guevara Unavailable [email or web address] Nicole Kc MD Primary Care Prov ider Kristine Leon CNP Primary Care Provider [phone] Kassandra Tang DNP Unavailable Ita uBrks MEDICAL PHYSICS PROFESSOR Unavailable [phone] Garth Crabtree MEDICAL PHYSICS PROFESSOR Unavailable [email or web address] Nixon Hogue Primary Care Provider [phone] Charlotte Fofana CNP Primary Care Provid er Encounter Details Date Type Department Care Team (Late st Contact Info) Description 09/28/2022 Telephone [facility] [address] [place] [address] Garth Crabtree MEDICAL PHYSICS PROFESSOR [address] [place], [place] Social History Tobacco Use Types Packs/Day [...] high school, GED, job training, learning the Romansh language, technical skills, or developing parenting skills)? [...] 02/16/2025 2:00 PM EST Social Work [facility] [address] [place] [address] Garth Crabtree, QUINCY [address] [place], [place] 03/16/2025 2:00 PM EST Social Work [facility] [address] [place] [address] Garth Crabtree LICSW [address] [place], [place] [email or web address] documented as of this encounter Visit Diagnoses Not on filedocumented in this encounter Care Teams Gas Reverser Relationship Specialty Start Date End Date Unknown, Unknown, PCP - General 03/14/22 11/19/22 Nicole Kc MD [address] [place] [address] [email or web address] PCP - General Family Medicine 11/20/22 3 Kristine Leon, PUBLIC ADDRESS TECHNICIAN [address] [place] [address] PCP - General 11/29/22 06/26/23 Nixon Hogue [address] [place] [address] PCP - General 06/27/23 12/03/23 Charlotte Fofana, CONNER [address] [place] [address] [email or web address] PCP - General Nurse Practitioner 12/04/23 Garth Crabtree LICSW [address] [place] [address] [email or web address] Teacher Of The Handicapped 03/20/22 02/03/23 Kassandra Tang DNP [address] [place] [address] [address] [address] [place] [address] 11/29/22 01/07/24 Ita Burks LICSW [address] [place] [address] [email or web address] Teacher Of The Handicapped 02/04/23 Garth Crabtree LICSW [address] [place] [address] [email or web address] Teacher Of The Handicapped 02/22/23 documented as of this encounter Additional Source Comments The information contained in this document represents components of the legal health record. It is not the complete legal health record.[facility]
== END 2025-02-08 16:46 | disposition home or self-care (01) ==
PROVIDERS: Emergency Provider Emergency Medicine
DX: M25.562 Pain in left knee (principal)
CPT/HCPCS: 73564; 96372; 99283; 99284; J1885

== ENCOUNTER → 2025-02-08 14:18 | Outpatient (BNV) | payer MEDICAID, SELFPAY | PROVIDERS: Visit Provider Radiology Diagnostic Radiology | DX: M25.562 Pain in left knee (principal) | CPT/HCPCS: 73564 ==

== ENCOUNTER 2025-03-10 20:24 | Emergency (ER) | payer MEDICAID, SELFPAY ==
--- OUTSIDE RECORDS SUMMARY | 2025-02-16 15:00 | XMS_ITS | Encounter Summary ---
Author Organization [facility] Address [address] [place] [address] Phone Care Team Providers Care Software Client Architect Name Role Phone Ita Burks QUINCY Unavailable [phone] Garth CrabtreeSW Unavailable [email or web address] Charlotte Fofana [facility] Primary Care Provid er Encounter Details Date Type Department Care Team (Late st Contact Info) Description 02/16/2025 3:00 PM EST Social Work [facility] [address] [place], [place] [phone] Garth Crabtree LICSW [address] [place], [place] Social History Tobacco Use Types Packs/Day [...] high school, GED, job training, learning the Pitcairn Islander language, technical skills, or developing parenting skills)? [...] AM EDT documented as of this encounter Progress Notes * Garth Crabtree LICSW - 02/16/2025 3:00 PM EST Eligio was coming out of class and is unable to meet at this time. Planned to meet for regularly scheduled session next week. documented in this encounter Plan of Treatment Not on file documented as of this encounter Visit Diagnoses Not on filedocumented in this encounter Additional Health Concerns Assessment Noted Time PHQ-9 Depression Total Score: 6 11/10/19 11:13 AM EDT PHQ-2 Depression Total Score: 1 11/10/19 11:13 AM EDT documented as of this encounter Care Teams Software Client Architect Relationship Specialty Start Date End Date Charlotte Fofana CNP [address] [place] [address] PCP - General Nurse Practitioner 12/04/23 Ita Burks LICSW [address] [place] [address] Fan Balancer 02/04/23 Garth Crabtree LICSW [address] [place] [address] Fan Balancer 02/22/23 documented as of this encounter Additional Source Comments The information contained in this document represents components of the legal health record. It is not the complete legal health record.[facility]
[2025-03-10 20:33] VITALS: BP 126/91; RESP 17; TEMP 36.7; O2SAT 100; BMI 27.6
--- OUTSIDE RECORDS SUMMARY | 2025-03-10 21:00 | XMS_ITS | Encounter Summary ---
Author Organization [facility] Address [address] [place] [address] Phone Care Team Providers Care Financial Sales Manager Name Role Phone Unknown, Unknown Primary Care Provider Garth Guevara Unavailable [email or web address] Nicole Kc MD Primary Care Prov ider Kristine Loen CNP Primary Care Provider [phone] Kassandra Tang DNP Unavailable [phone] Ita Burks CHASSIS DRIVER Unavailable [phone] Garth Crabtree CHASSIS DRIVER Unavailable [email or web address] Nixon Hogue Primary Care Provider [phone] Charlotte Fofana CNP Primary Care Provid er Encounter Details Date Type Department Care Team (Late st Contact Info) Description 09/28/2022 Telephone [facility] [address] [place] [address] Garth Crabtree CHASSIS DRIVER [address] [place], [place] Social History Tobacco Use Types Packs/Day [...] high school, GED, job training, learning the Mongolian language, technical skills, or developing parenting skills)? [...] as of this encounter Plan of Treatment Not on file documented as of this encounter Visit Diagnoses Not on filedocumented in this encounter Care Teams Financial Sales Manager Relationship Specialty Start Date End Date Unknown, Unknown, MD PCP - General 03/14/22 11/19/22 Nicole Kc MD [address] [place] [address] PCP - General Family Medicine 11/20/22 3 Kristine Leon, MANAGED CARE DIRECTOR [address] [place] [address] [address] [place] [address] PCP - General 11/29/22 06/26/23 Nixon Hogue [address] [place] [address] PCP - General 06/27/23 12/03/23 Charlotte Fofana, MANAGED CARE DIRECTOR [address] [place] [phone] [email or web address] PCP - General Nurse Practitioner 12/04/23 Garth Crabtree LICSW [address] [place] [address] [email or web address] Solderer Torch 03/20/22 02/03/23 Kassandra Tang DNP [address] [place] [address] [address] [address] [place] [address] 11/29/22 01/07/24 Ita Burks LICSW [address] [place] [address] [address] [place] [address] [email or web address] Solderer Torch 02/04/23 Garth Crabtree LICSW [address] [place] [address] Solderer Torch 02/22/23 documented as of this encounter Additional Source Comments The information contained in this document represents components of the legal health record. It is not the complete legal health record.[facility]
--- OUTSIDE RECORDS SUMMARY | 2025-03-10 21:00 | XMS_ITS | Encounter Summary ---
Author Organization [facility] Address [address] [place] [address] Phone Care Team Providers Care Consumer Experience Consultant Name Role Phone Unknown, Unknown Primary Care Provider Garth Guevara Unavailable [email or web address] Nicole Kc MD Primary Care Prov ider Kristine Leon CNP Primary Care Provider [phone] Kassandra Tang DNP Unavailable Ita Burks HIGH SCHOOL SOCIAL STUDIES TEACHER Unavailable [phone] Garth Crabtree HIGH SCHOOL SOCIAL STUDIES TEACHER Unavailable [email or web address] Nixon Hogue Primary Care Provider [phone] Charlotte Fofana CNP Primary Care Provid er Encounter Details Date Type Department Care Team (Late st Contact Info) Description 09/28/2022 Telephone [facility] [address] [place] [address] Garth Crabtree HIGH SCHOOL SOCIAL STUDIES TEACHER [address] [place], [place] Social History Tobacco Use Types Packs/Day [...] high school, GED, job training, learning the Sinhala language, technical skills, or developing parenting skills)? [...] on filedocumented in this encounter Care Teams Consumer Experience Consultant Relationship Specialty Start Date End Date Unknown, Unknown, MD PCP - General 03/14/22 11/19/22 Nicole Kc MD [address] [place] [address] PCP - General Family Medicine 11/20/22 3 Kristine Leon, SENIOR TAX ANALYST [address] [place] [address] 3 [place] [address] PCP - General 11/29/22 06/26/23 Nixon Hogue [address] [place] [address] PCP - General 06/27/23 12/03/23 Charlotte Fofana, SENIOR TAX ANALYST [address] [place] [address] [email or web address] PCP - General Nurse Practitioner 12/04/23 Garth Crabtree LICSW [address] [place] [address] [email or web address] Veneer Production Machine Operator 03/20/22 02/03/23 Kassandra Tang DNP [address] [place] [address] [address] [address] [place] [address] 11/29/22 01/07/24 Ita Burks LICSW [address] [place] [address] [address] [place] [address] [email or web address] Veneer Production Machine Operator 02/04/23 Garth Crabtree LICSW [address] [place] [address] Veneer Production Machine Operator 02/22/23 documented as of this encounter Additional Source Comments The information contained in this document represents components of the legal health record. It is not the complete legal health record.[facility]
--- OUTSIDE RECORDS SUMMARY | 2025-03-10 21:00 | XMS_ITS | Clinical Summary ---
Author Organization [facility] Address [address] [place] [address] Phone Care Team Providers Care Hat Blocking Operator Name Role Phone Ita Burks LINE DECORATOR Unavailable [phone] BorGarth romero LINE DECORATOR Unavailable [email or web address] Charlotte Fofana [facility] Primary Care Provid er Allergies Active Allergy Reactions Criticality Noted Date Comments Amoxicillin Rash Low 09/17/2022 Nickel Rash Low 06/27/2023 Pork/Porcine Containing Products Other (See Comments) 09/17/2022 Jew reasons Medications lamoTRIgine (LAMICTAL) 200 MG IMMEDIATE [...] Encounters Date Type Department Care Team Description 03/02/2025 3:00 PM EST [facility] Work [facility] [address] [place] [address] Garth Crabtree, [facility] 02/26/2025 8:00 AM EST Social Work [facility] [address] [place] [address] Garth Crabtree, [facility] 02/23/2025 3:00 PM EST Social Work [facility] [address] [place] [address] Garth Crabtree, [facility] 02/16/2025 3:00 PM EST Social Work [facility] [address] [place] [address] Garth Crabtree, [facility] 02/16/2025 2:00 PM EST Social Work [facility] [address] [place] [address] Garth Crabtree, [facility] 01/19/2025 2:00 PM EST Social Work [facility] [address] [place] [address] Garth Crabtree, LINE DECORATOR 12/22/2024 [facility] [address] [place], [place] [phone] Rios Saxena from Last 3 Months Immunizations Immunization Administration Dates Next Due DTaP 01/19/2003, 1,04/24/1999,02/20,1998 Declined 07/17/1999 [id number] FORMULATION 01/26/2009 HPV,quadrivalent 02/01/2011,04/05/2010, 0 Hepatitis A, [...] high school, GED, job training, learning the Monegasque language, technical skills, or developing parenting skills)? [...] 07/31/2023 Can we help you enroll in [place]? Not on file 0 07/31/2023 Intimate Partner [...] 11/09/2024 10:05 AM EDT Plan of Treatment Health Maintenance Due Date Last Done Comments [...] Not on file Insurance [place] [facility] Care Teams Hat Blocking Operator Relationship Specialty Start Date End Date Charlotte Fofana CNP [address] [place] [phone] [email or web address] PCP - General Nurse Practitioner 12/04/23 Ita Burks LINE DECORATOR [address] [place] [address] [email or web address] Hospital Pharmacy Director 02/04/23 Garth Crabtree [facility] [address] [place] [address] [email or web address] Hospital Pharmacy Director 02/22/23 Additional Source Comments The information contained in this document represents components of the legal health record. It is not the complete legal health record.[facility]
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
[2025-03-10 21:51] LABS: MANUAL DIFF FLAG NO
[2025-03-10 21:53] LABS: Hematocrit 43.8 % (42.0-52.0); Hemoglobin 15.2 g/dl (14.0-18.0); Imm Gran Abs Auto 0.03 X10*3/uL (0.00-0.03); Imm Gran Pct Auto 0.3 % (0.0-0.4); Lymphocytes Absolute Auto 1.3 X10*3/uL (1.2-4.9); Mean Corpuscular HGB Conc 34.7 g/dl (31.0-36.0); Mean Corpuscular Hemoglobin 31.1 pg (27.0-33.0); Mean Corpuscular Volume 89.6 fL (80.0-98.0); NRBC Abs Auto 0.000 X10*3/uL (0.0-0.012); NRBC Pct Auto 0.0 /100WBC (0.0-0.2); Platelet Count 293 X10*3/uL (160-400); Red Blood Count 4.89 X10*6/uL (4.60-5.80); White Blood Count 9.8 X10*3/uL (4.8-10.8)
[2025-03-10 22:05] LABS: Cannabinoid Screen Urine POSITIVE (Not Detect)
[2025-03-10 22:06] LABS: Alanine Aminotransferase 16 U/L (0-40); Albumin Level 4.8 g/dL (3.5-5.0); Alkaline Phosphatase 83 U/L (39-117); Anion Gap 13 (12-20); Aspartate Amino Transferase 28 U/L (5-37); Blood Urea Nitrogen 7 mg/dL (9-16); Calcium 9.9 mg/dL (8.4-10.2); Carbon Dioxide 24 mmol/L (22-29); Chloride 107 mmol/L (96-108); Creatinine Clr Calc Pharmacy 95.1; Estimated Glomerular Filt Rate > 60; Lipase 18 U/L (8-78); Magnesium 1.9 mg/dL (1.6-2.6); Potassium 3.6 mmol/L (3.3-5.1); Sodium 140 mmol/L (135-145); Total Protein 7.5 g/dL (6.5-8.0)
[2025-03-10 22:08] LABS: Acetaminophen LAB < 3 mcg/mL (<30); Salicylate < 5.0 mg/dL (15-30)
--- NOTE | 2025-03-11 07:07 | PC.NURSE ---
Assumed care of patient at 0645, patient appears to be in no apparent distress this am, resting in bed, respirations even and unlabored. Continue plan of care for CARE team alison
[2025-03-11] MEDS: Amphetamine Mixed Salts 10 MG TABLET PO (08:31)
[2025-03-11 08:50] VITALS: BP 123/71; PULSE 97; RESP 18; TEMP 36.5; O2SAT 100
[2025-03-11 10:24] VITALS: BP 123/71; PULSE 97; RESP 18; TEMP 36.5; O2SAT 100
== END 2025-03-11 10:33 | disposition home or self-care (01) ==
PROVIDERS: Physician Assistant Medical; Emergency Provider Emergency Medicine
DX: F22 Delusional disorders (principal); R44.1 Visual hallucinations; F90.9 Attention-deficit hyperactivity disorder, unspecified type; Z79.899 Other long term (current) drug therapy
CPT/HCPCS: 36415; 80053; 80143; 80179; 80307; 83690; 83735; 85025; 99285; S9485